=== PATIENT | female | born 1995 | race American Indian/Alaskan Native ===

== ENCOUNTER 2025-02-19 09:51 | Inpatient (IN) | payer BC, SELFPAY ==
[2025-02-19] VITALS (13 sets, daily range): BP systolic 162–216; BP diastolic 105–159; PULSE 92–127; RESP 10–20; TEMP 36.2–37.3; O2SAT 95–99; BMI 55.7
--- NOTE | 2025-02-19 | XR_ITS ---
Examination: MRI of brain without intravenous contrast. MRI brain with intravenous contrast. Date and time of exam:February 19, 2025 1330 hours INDICATIONS: Onset right-sided facial droop with numbness beginning 8:00 PM last night Technique: Multiple axial and sagittal images of the brain to been obtained. Siemens high-resolution 1.52 Elizabeth short bore scanner utilized. Sagittal sections, T1 weighted images, TR 500, TE 14, are performed. Axial sections proton-density and T2-weighted images have been obtained. Inversion recovery axial images, TR 9260, TE 111, TR 2500. Diffusion weighted images, axial sections, TR 4800, TE 128, B value 1000. Axial sections, ADC map, TR 4800, TE 128. Axial and coronal images were also obtained post 20 cc gadolinium administered intravenously. Findings:: Enlargement of the sella turcica is not present. The optic chiasm and infundibular stalk are not remarkable. There is no localized enlargement of the medulla or ian. Fourth ventricle and cerebellar tonsils appear normal in position. No subacute area of hemorrhage density is seen. Fourth ventricle is midline. Mass in the cerebellopontine angle region is not evident. 7th and 8th nerve complexes exhibit symmetry Globes are symmetrical Orbital musculature including medial lateral rectus muscles do not exhibit abnormality Increased white matter signal is not seen Effacement of the cortical sulcal markings is not identified. Mass effect upon the ventricular system is not identified. Diffusion-weighted images demonstrate no foci restricted diffusion Contrast images demonstrate no abnormal enhancement Impression: Negative for acute hemorrhage mass effect or midline shift No acute infarct No MR findings diagnostic for demyelinating disease
--- NOTE | 2025-02-19 10:18 | EKG_ITS ---
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
--- NOTE | 2025-02-19 10:18 | XR_ITS ---
Examination: CT brain head without contrast. 2-D sagittal coronal reconstructions Date and time of exam:February 19, 2025 at 1036 hours INDICATIONS: Onset facial numbness this morning CTDI: vol (mGy):67.2 DLP: (mGycm):1243 Technique: Multiple CT axial sections of the brain have been obtained, 5 mm slice thickness. Contrast has not been administered. 2-D sagittal, coronal reconstructions have been obtained Low dose protocols were performed. One or more of the following dose reduction techniques were used; automated exposure control, adjustment of the mA and/or KV according to patient size, use of iterative reconstruction technique. Findings: No significant ventricular enlargement. Intra-axial or extra-axial hemorrhage density is not seen. No mass effect or midline shift Basal cisterns are not remarkable. Fourth ventricle is midline. Cranial vault intact. Impression: Negative for acute hemorrhage, mass effect or midline shift As clinically warranted, brain MRI follow-up would best assess for demyelinating disease
--- NOTE | 2025-02-19 10:18 | PD.EDRME ---
Rapid Medical Screening Exam RME Arrival date/time: 02/19/25 09:51 29-year-old female with no known medical history presents to the emergency room with a chief complaint of left-sided facial numbness and facial droop that began yesterday around 6 PM. Patient states she was sent over by her primary care provider for hypertension emergency. I have greeted and performed a focused initial assessment of this patient. A comprehensive ED assessment and evaluation of the patient, analysis of all test results, and completion of the medical decision making process will be conducted by additional ED providers. Chief Complaint: General Adult/Misc Complain Vital signs reviewed by provider: Yes
[2025-02-19 11:17] LABS: Basophils # (Auto) 0.1 Thou/mm3 (0.0-0.2); Basophils % (Auto) 0 % (0-2.5); Eosinophils # (Auto) 0.1 Thou/mm3 (0.0-0.5); Eosinophils % (Auto) 1 % (0-10); Hemoglobin 14.2 g/dL (12.0-16.0); Immature Granulocytes % (Auto) 0 % (0-0); Immature Granulocytes Auto 0.05 Thou/mm3 (0.00-0.00); Lymphocytes # (Auto) 2.2 Thou/mm3 (1.0-4.8); Lymphocytes % (Auto) 16 % (10-50); Mean Corpuscular HGB Conc 32.3 g/dl (31.0-37.0); Mean Corpuscular Hemoglobin 25.3 pg (25.0-35.0); Mean Corpuscular Volume 78 fL (80-100); Monocytes # (Auto) 0.5 Thou/mm3 (0.0-0.8); Monocytes % (Auto) 4 % (0-12); Neutrophils # (Auto) 11.1 Thou/mm3 (1.8-7.7); Neutrophils % (Auto) 79 % (37-80); Nucleated Red Blood Cell % 0 /100 WBC (0); Platelet Count 337 Thou/mm3 (140-440); RDW Standard Deviation 38.1 fL (36.4-46.3); Red Blood Count 5.61 Miln/mm3 (4.00-5.20)
[2025-02-19 11:25] LABS: INR 1.1 (0.9-1.3); Prothrombin Time 11.8 Seconds (9.0-12.2)
--- NOTE | 2025-02-19 11:30 | EDNOTE_ITS ---
<Statement entered by Magalie Mike MD - 02/19/25 17:45> As co-signing physician, I was present and available for consult prn. I concur with the plan and care as documented by the midlevel provider. ED General RME/HPI General Chief complaint: General Adult/Misc Complain Stated complaint: SENT BY PCP FOR HTN Time Seen by Provider: 02/19/25 11:12 Arrival date/time: 02/19/25 09:51 CC: Hypertensive emergency, right-sided facial droop HPI hypertension emergency is with the primary care provider sent her over for, the patient also stated she has right-sided facial droop with numbness onset approximately 8 PM yesterday approximately 16 hours ago. Patient is morbidly obese awake alert oriented nontoxic-appearing not in any acute distress. RME / HPI RME / HPI narrative: 02/19/25 09:51 29-year-old female with no known medical history presents to the emergency room with a chief complaint of left-sided facial numbness and facial droop that began yesterday around 6 PM. Patient states she was sent over by her primary care provider for hypertension emergency. I have greeted and performed a focused initial assessment of this patient. A comprehensive ED assessment and evaluation of the patient, analysis of all test results, and completion of the medical decision making process will be conducted by additional ED providers. Related Data Previous Rx's ?Medication ?Instructions ?Recorded acetaminophen 650 mg 650 mg PO Q8H PRN fever or p ain 05/09/19 tablet,extended release #30 tabs ibuprofen 600 mg tablet 600 mg PO Q8H PRN fever or p ain 05/09/19 #30 tabs Allergies Allergy/AdvReac Type Severity Reaction Status Date / Time No Known Allergies Allergy Verified 02/19/25 09:52 Review of Systems Review of Systems Narrative Review of Systems: GEN: No fever, no chills, no weight loss EYES: No discharge, no visual changes, no pain HEENT: No ear pain, no congestion, no sore throat PULM: No shortness of breath, no cough, no congestion CV: No chest pain, no dyspnea on exertion, no palpitations GI: No nausea, no vomiting, no diarrhea, no pain, no constipation : No frequency, no urgency, no dysuria MUSC/SKEL: No joint pain, no back pain SKIN: No rash PSYCH: No hallucinations, no depression HEME/LYMPH: No easy bleeding or bruising tendencies NEURO: No weakness, no headache, right-sided facial droop Past Medical History Past Medical History CARDIAC: Positive Cardiac Disorders and Hypertension; Negative Congestive Heart Failure RESPIRATORY: Negative Chronic Obstructive Pulmonary Disease (COPD) GENITOURINARY: Negative Renal Disease ENDOCRINE: Negative Diabetes Mellitus Type 1 or Diabetes Mellitus Type 2 Social History SMOKING STATUS: Never smoker ED Exam Narrative Physical exam: [General: Morbidly obese not in any acute distress Head normocephalic HEENT: Eyes pupils are PERRLA EOMs are intact no nystagmus, mouth pink moist membranes uvula is midline swallow symmetrical phonation is normal. All other subsystems of ATTR within acceptable limits Neck is supple nontender Chest equal chest rise nontender to palpation Respiratory: Clear to auscultation no wheezes crackles or rubs CV: Rate rhythm is regular no murmurs rubs or clicks Abdomen is grossly distended secondary to body habitus soft nontender no masses positive bowel sounds all 4 quadrants Back: No CVA tenderness no spinous process tenderness from cervical spine thoracic and lumbar spine Skin: Intact no petechiae rash induration ulceration or crepitus Extremities: Moving all extremity against resistance cap refill less than 2 seconds neurosensory intact Neuro: Awake alert oriented x3 right-sided facial droop, no tongue deviation. No ptosis. No pronator drift, no proprioception issues Course Quality Measures none Orders Category Date Time Status EKG (ED ONLY) *Do not use* NOW Care 02/19/25 10:18 Completed MRI Screening NOW Care 02/19/25 11:29 Active Saline [Insert IV] NOW Care 02/19/25 11:[address] head/brain wo con Stat Exams 02/19/25 10:18 Completed EKG (ED Only) Stat Exams 02/19/25 10:18 Draft MR head/brain wo/w con Stat Exams 02/19/25 Completed B-Type Natriuretic Peptide Stat Lab 02/19/25 10:51 Completed CBC Stat Lab 02/19/25 10:51 Completed Comprehensive Metabolic Panel Stat Lab 02/19/25 10:51 Completed Drug Screen,Urine Stat Lab 02/19/25 12:00 Completed HCG Qualitative,Urine Stat Lab 02/19/25 12:00 Completed Magnesium Stat Lab 02/19/25 10:51 Completed Partial Thromboplastin Time Stat Lab 02/19/25 10:51 Completed Prothrombin Time with INR Stat Lab 02/19/25 10:51 Completed Troponin I Stat Lab 02/19/25 10:51 Completed Urinalysis Stat Lab 02/19/25 10:18 Ordered Urinalysis, C/S if Indicated Stat Lab 02/19/25 12:00 Completed Metoprolol Tartrate [Lopressor] Med 02/19/25 12:37 Discontinued 50 mg PO X1 ONE Ondansetron Inj [Zofran Inj] Med 02/19/25 14:52 Discontinued 4 mg IV X1 ONE hydrALAZINE INJ [Apresoline Inj] Med 02/19/25 14:08 Discontinued 10 mg IV X1 ONE hydrALAZINE INJ [Apresoline Inj] Med 02/19/25 11:19 Discontinued 20 mg IV X1 ONE Vital Signs Vital signs: Vital Signs Temperature 99.2 F 02/19/25 10:32 Pulse Rate 105 H 02/19/25 10:32 Respiratory Rate 20 02/19/25 10:32 Blood Pressure 210/147 H 02/19/25 10:32 Pulse Oximetry (%) 96 02/19/25 10:32 Oxygen Delivery Method Room Air 02/19/25 10:32 [facility] Patient data External records reviewed:: [facility] previous records Clinical information provided by:: patient Social determinants that could affect healthcare access:: none Patient has the following chronic illnesses:: Morbid obesity How is presenting disease/condition affected by chronic disease/condition?: e xacerbated by Evaluation data The following diagnostics were reviewed and interpreted by me:: lab results and radiology exam(s) Lab and/or radiology exams considered but not ordered:: EKG performed at 1030 shows a ventricular rate of 92 MD interval 148 QRS 190 QTc 416 sinus rhythm left ventricular hypertrophy. CBC shows mild leukocytosis of 14,000 H&H of 1214.2 and 44.0 with no thrombocytopenia Coags within acceptable limits CMP shows no significant electrolyte imbalances or renal impairment transaminitis or T. bili elevation Troponin is negative BNP is less than 20. Urine shows 2+ protein UDS is negative. CT of the head is negative for any acute finding. MRI of the head is negative. Interpretation Summary: After multiple doses of hydralazine and metoprolol and was unable to bring the pressures down lower than 190/110. At this time I am concerned for the patient's hypertension emergency I discussed the patient's case with Dr. Campos who agrees to accept the patient for admission. 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 Medications Medications considered but not ordered:: None Medication administrations:: Medication Administration History Discontinued Medications Hydralazine HCl (Hydralazine Inj 20 Mg/Ml Vial) 20 mg IV X1 ONE Stop: 02/19/25 11:20 Last Admin: 02/19/25 11:46 Dose: 20 mg Documented By: LP Hydralazine HCl (Hydralazine Inj 20 Mg/Ml Vial) 10 mg IV X1 ONE Stop: 02/19/25 14:09 Last Admin: 02/19/25 14:16 Dose: 10 mg Documented By: LP Metoprolol Tartrate (Metoprolol Tartrate 25 Mg Tablet) 50 mg PO X1 ONE Stop: 02/19/25 12:38 Last Admin: 02/19/25 12:48 Dose: 50 mg Documented By: LP Ondansetron HCl (Ondansetron Inj 2 Mg/Ml Inj 2 Ml) 4 mg IV X1 ONE; Protocol Stop: 02/19/25 14:53 Last Admin: 02/19/25 14:56 Dose: 4 mg Documented By: TEJINDER None Consultations Consultation(s) initiated? (list below): No Diagnosis Differential Diagnosis ED Complaint MDM: CVA TIA Kelly's palsy hypertensive emergency Most likely diagnosis given after review of the tests above:: Hypertension emergency Kelly's palsy Admission Indicated Admission indicated?: indicated Explain why admission is indicated or not indicated:: Requires further medical management Admission Request Was there a request for admission?: No Disposition Plan Disposition Plan: Discharge Discharge Attestation Discharge Attestation: The patient and all family members were given an opportunity to ask questions and understood the discharge instructions. Discharge instructions specifically effects, indications for sooner follow up or return to the emergency department, and the expected course of current diagnosis. Patient condition: Stable Medical Decision Making Differential Diagnosis Differential Diagnosis: CVA TIA Kelly's palsy hypertensive emergency Lab Data 02/19/25 10:51 02/19/25 10:51 Labs: Lab Results 02/19/25 02/19/25 Range/Units 10:51 12:00 WBC 14.0 H (3.6-11.0) Thou/mm3 RBC 5.61 H (4.00-5.20) Miln/mm3 Hgb 14.2 (12.0-16.0) g/dL Hct 44.0 (36.0-46.0) % MCV 78 L (80-100) fL MCH 25.3 (25.0-35.0) pg MCHC 32.3 (31.0-37.0) g/dl RDW Std Deviation 38.1 (36.4-46.3) fL Plt Count 337 (140-440) Thou/mm3 Neut % (Auto) 79 (37-80) % Lymph % (Auto) 16 (10-50) % [place] % (Auto) 4 (0-12) % Eos % (Auto) 1 (0-10) % Baso % (Auto) 0 (0-2.5) % Neut # (Auto) 11.1 H (1.8-7.7) Thou/mm3 Lymph # (Auto) 2.2 (1.0-4.8) Thou/mm3 [place] # (Auto) 0.5 (0.0-0.8) Thou/mm3 Eos # (Auto) 0.1 (0.0-0.5) Thou/mm3 Baso # (Auto) 0.1 (0.0-0.2) Thou/mm3 Immature Gran # (Auto) 0.05 H (0.00-0.00) Thou/mm3 Absolute Nucleated RBC 0.00 (0.00-0.00) Thou/mm3 Immature Gran % 0 (0-0) % Nucleated RBC % 0 (0) /100 WBC PT 11.8 (9.0-12.2) Seconds INR 1.1 (0.9-1.3) APTT 30.0 (22.0-36.0) Seconds Sodium 139 (136-145) mMol/L Potassium 3.8 (3.4-5.1) mMol/L Chloride 105 (98-107) mMol/L Carbon Dioxide 25.1 (20.0-31.0) mMol/L Anion Gap 9 (7-16) BUN 9 (9-23) mg/dL Creatinine 0.7 (0.6-1.3) mg/dL Estim Creat Clear Calc 161.3 (>60) mL/min eGFR > 60 (60 - ) See Note BUN/Creatinine Ratio 13 (12-20) Ratio Glucose 96 (74-106) mg/dL Calculated Osmolality 276 (275-295) Calcium 9.1 (8.3-10.6) mg/dL Corrected Calcium 9.1 (8.5-10.1) mg/dL Magnesium 1.9 (1.6-2.6) mg/dL Total Bilirubin 0.5 (0.3-1.2) mg/dL AST 22 (0-34) U/L ALT 25 (10-49) U/L Alkaline Phosphatase 104 (46-116) U/L Troponin I < 0.020 (0.0-0.045) ng/mL B-Natriuretic Peptide < 20 (0-100) pg/mL Total Protein 8.3 H (5.7-8.2) gm/dL Albumin 4.5 (3.5-5.0) gm/dL Globulin 3.8 H (2.3-3.5) gm/dL Albumin/Globulin Ratio 1.2 (1.2-2.2) Ur Collection Type Clean Catch Urine Color Lt-Yellow (Lt Yel-Yel) Urine Clarity Clear (Clear/Hazy) Urine pH 6.5 (5.0-7.0) Ur Specific [place] 1.022 (1.001-1.035) Urine Protein 2+ A (Neg - Trace) Urine Glucose (UA) Negative (Negative) Urine Ketones Negative (Negative) Urine Blood Trace (Negative) Urine Nitrite Negative (Negative) Urine Bilirubin Negative (Negative) Urine Urobilinogen (Auto) Negative (0.0-1.0) mg/dL Ur Leukocyte Esterase Negative (Negative) Urine RBC 8 H (0-3) /hpf Urine WBC 3 (0-5) /hpf Ur Squamous Epith Cells 4 (0-5) /hpf Urine Bacteria None (None) Ur Culture Indicated? Not Indicated Urine HCG, Qual Negative Urine Opiates Screen Negative (Negative) Urine Fentanyl Screen Negative (Negative) Ur Barbiturates Screen Negative (Negative) U Amphetamin/Meth Scrn Negative (Negative) U Benzodiazepines Scrn Negative (Negative) U Cocaine Metab Screen Negative (Negative) U Marijuana (THC) Screen Negative (Negative) Discharge Plan Plan Patient Disposition: HOME (Self Care) Patient condition on transfer: Stable Prescriptions/Referrals Prescriptions/Med Rec: No Action acetaminophen 650 mg tablet extended release 650 mg PO Q8H PRN (Reason: fever or pain) Qty: 30 0RF Rx Instructions: swallow whole; do not crush, chew, break, dissolve, cut, or open ibuprofen 600 mg tablet 600 mg PO Q8H PRN (Reason: fever or pain) Qty: 30 0RF Rx Instructions: prn pain / fever Referrals: Ji Dash MD [Primary Care Provider] - In 1 week Problem List Clinical Impression: Hypertensive emergency, Kelly's palsy Patient/Caregiver Discharge Instructions Print Language: Irish Stand Alone Forms: Ro Award Info., Patient Portal Info Letter PA/FORMING YARDAGE CONTROL OPERATOR Supervising Physician PA/FORMING YARDAGE CONTROL OPERATOR Supervising Physician: Albino Ludwig ENP
[2025-02-19 11:32] LABS: B-Type Natriuretic Peptide < 20 pg/mL (0-100)
[2025-02-19 11:34] LABS: Alanine Aminotransferase 25 U/L (10-49); Albumin, Serum 4.5 gm/dL (3.5-5.0); Albumin/Globulin Ratio 1.2 (1.2-2.2); Alkaline Phosphatase 104 U/L (46-116); Anion Gap 9 (7-16); Aspartate Amino Transferase 22 U/L (0-34); BUN/Creatinine Ratio 13 Ratio (12-20); Bilirubin,Total 0.5 mg/dL (0.3-1.2); Blood Urea Nitrogen 9 mg/dL (9-23); Calcium 9.1 mg/dL (8.3-10.6); Calcium (Corrected) 9.1 mg/dL (8.5-10.1); Carbon Dioxide 25.1 mMol/L (20.0-31.0); Chloride 105 mMol/L (98-107); Creatinine (Component) 0.7 mg/dL (0.6-1.3); Estimated Creatinine Clearance 161.3 mL/min (>60); Globulin 3.8 gm/dL (2.3-3.5); Glucose 96 mg/dL (74-106); Magnesium 1.9 mg/dL (1.6-2.6); Osmolality,Calculated 276 (275-295); Potassium 3.8 mMol/L (3.4-5.1); Sodium 139 mMol/L (136-145); Total Protein 8.3 gm/dL (5.7-8.2); Troponin I < 0.020 ng/mL (0.0-0.045); eGFR > 60 See Note
[2025-02-19] MEDS: hydrALAZINE INJ 20 MG/ML VIAL IV (11:46)
[2025-02-19 12:22] LABS: Collection Type, Urine Clean Catch
[2025-02-19] MEDS: METOPROLOL TARTRATE 25 MG TABLET 50 MG PO (12:48)
[2025-02-19 12:50] LABS: Bilirubin,Urine Negative (Negative); Blood,Urine Trace (Negative); Clarity,Urine Clear (Clear/Hazy); Color,Urine Lt-Yellow (Lt Yel-Yel); Culture Indicated,Urine Not Indicated; Glucose, Urine Negative (Negative); Ketones,Urine Negative (Negative); Leukocyte Esterase,Urine Negative (Negative); Nitrite,Urine Negative (Negative); PH,Urine 6.5 (5.0-7.0); Protein,Urine 2+ (Neg - Trace); RBC,Urine 8 /hpf (0-3); Specific Gravity,Urine 1.022 (1.001-1.035); Squamous Epithelial Cell,Urine 4 /hpf (0-5); Urobilinogen,Urine Negative mg/dL (0.0-1.0); WBC,Urine 3 /hpf (0-5)
[2025-02-19 13:00] LABS: HCG Qualitative,Urine Negative
[2025-02-19 13:13] LABS: Amphetamine/Methamp Scrn,U Negative (Negative); Barbiturate Screen,Urine Negative (Negative); Benzodiazepines Screen,Urine Negative (Negative); Benzoylecgonine Screen, Ur Negative (Negative); Fentanyl Screen,Urine Negative (Negative); Opiate Screen,Urine Negative (Negative); THC Screen,Urine Negative (Negative)
[2025-02-19] MEDS: hydrALAZINE INJ 20 MG/ML VIAL 10 MG IV (14:16)
[2025-02-19] MEDS: ONDANSETRON INJ 2 MG/ML INJ 2 ML 4 MG IV (14:56)
[2025-02-19] MEDS: LABETALOL INJ 5 MG/ML VIAL 20 ML 10 MG IVP ×2 (15:34→16:41)
[2025-02-19] MEDS: ACETAMINOPHEN 325 MG TABLET 650 MG PO ×2 (15:34→21:16)
--- NOTE | 2025-02-19 16:43 | PC.NURSE ---
LABETALOL VIAL WAS ON WOW, GOT PUMPED, FELL TO FLOOR AND SHATTERED. CALLED PHARMACY AND WAS INSTRUCTED TO UNDO THAT IT HAD BEEN GIVEN AND PUT THE ORDER IN AGAIN WHICH WAS DONE.
--- NOTE | 2025-02-19 18:10 | ESHP_ITS ---
<Statement entered by Torin Christine MD - 02/21/25 07:57> Senior Resident Attestation: I supervised/discussed management plan with recording studio internship physician Dr. Chaves, and was involved in the care of this patient. I personally saw and examined the patient and discussed the assessment and plan with the entire medicine team, including my attending. I agree with the assessment and plan as documented. Patient's care was discussed with attending physician, Dr. Campos. Torin Christine MD PGY-2. Documentation for date of: 02/19/25 HPI History of Present Illness History of present illness: Ms. George is a 29-year-old female with no significant past medical history presented to the ED sent from urgent care after she was found to have systolic blood pressure above 200s and right sided facial droop. Patient states this has never happened before she was fine last night however she did note do some mild droopiness on the right side of her face and this morning she noticed a significant droop which prompted her to go to the urgent care where she was found to be in hypertensive emergency. Patient states she does have a headache, nausea and vomiting but denies any dizziness blurry vision or syncopal episodes. Patient states she was sick about 2 to 3 weeks ago with some upper respiratory infection with sore throat and runny nose however she did not take any medications and naturally got better. Patient denies any constipation or diarrhea denies any recent travels or sick contacts. Exam Vital Signs Temp Pulse Resp BP Pulse Ox O2 Del Method 98.8 F 100 10 L 170/110 H 97 Room Air 02/19/25 17:56 02/19/25 17:56 02/19/25 17:56 02/19/25 17:56 02/19/25 17:56 02/19/25 17:56 Narrative Exam GENERAL: A&Ox3 . Awake, obese young female, does not appear to be in distress NEURO: no focal neurological deficits noted other than right sided facial droop HEENT: Atraumatic, Normocephalic. mucous membranes moist. Eyes open, symmetrical, & clear HEART: Normal Heart Sounds LUNGS: Clear to auscultation with no wheezing or crackles. ABDOMEN: soft, non-distended, non-tender, bowel sounds heard, no guarding or rebound tenderness SKIN: No Rash or ecchymoses EXTREMITIES: No edema, tenderness, able to move all 4 extremities, pedal pulses palpated Results: Labs 02/20/25 05:10 02/20/25 05:10 Labs: Short CBC 02/19/25 Range/Units 10:51 WBC 14.0 H (3.6-11.0) Thou/mm3 Hgb 14.2 (12.0-16.0) g/dL Hct 44.0 (36.0-46.0) % Plt Count 337 (140-440) Thou/mm3 BMP 02/19/25 10:51 Sodium 139 Potassium 3.8 Chloride 105 Carbon Dioxide 25.1 BUN 9 Creatinine 0.7 Glucose 96 Calcium 9.1 Cardiac Enzymes 02/19/25 Range/Units 10:51 Troponin I < 0.020 (0.0-0.045) ng/mL Liver Function 02/19/25 Range/Units 10:51 Total Bilirubin 0.5 (0.3-1.2) mg/dL AST 22 (0-34) U/L ALT 25 (10-49) U/L Alkaline Phosphatase 104 (46-116) U/L Albumin 4.5 (3.5-5.0) gm/dL Urine 02/19/25 Range/Units 12:00 Urine Color Lt-Yellow (Lt Yel-Yel) Urine Clarity Clear (Clear/Hazy) Urine pH 6.5 (5.0-7.0) Ur Specific [place] 1.022 (1.001-1.035) Urine Protein 2+ A (Neg - Trace) Urine Glucose (UA) Negative (Negative) Quality Measures Quality Measures none Medications Home Medications and Allergies Allergies Allergy/AdvReac Type Severity Reaction Status Date / Time No Known Allergies Allergy Verified 02/19/25 09:52 Visit Medications Acetaminophen (Acetaminophen Supp 650 Mg Supp) 650 mg OK Q6H PRN PRN Reason: pain and fever Stop: 03/21/25 16:41 Aspirin (Aspirin Ec 81 Mg Tabec) 81 mg PO DAILY KEYSHA Stop: 03/21/25 16:59 Heparin Sodium (Porcine) (Heparin Sod Inj 5000 Unit/Ml Vial) 5,000 unit SC Q8HR KEYSHA Stop: 03/05/25 21:59 Labetalol HCl (Labetalol Inj 5 Mg/Ml Vial 20 Ml) 20 mg IVP Q6H PRN PRN Reason: SBP >180 DBP > 110 Stop: 03/21/25 19:59 Ondansetron HCl (Ondansetron Inj 2 Mg/Ml Inj 2 Ml) 4 mg IV Q6H PRN; Protocol PRN Reason: NAUSEA OR VOMITING Stop: 03/21/25 16:41 Discontinued Medications Acetaminophen (Acetaminophen 325 Mg Tablet) 650 mg PO X1 ONE Stop: 02/19/25 15:27 Last Admin: 02/19/25 15:34 Dose: 650 mg Hydralazine HCl (Hydralazine Inj 20 Mg/Ml Vial) 20 mg IV X1 ONE Stop: 02/19/25 11:20 Last Admin: 02/19/25 11:46 Dose: 20 mg Hydralazine HCl (Hydralazine Inj 20 Mg/Ml Vial) 10 mg IV X1 ONE Stop: 02/19/25 14:09 Last Admin: 02/19/25 14:16 Dose: 10 mg Labetalol HCl (Labetalol Inj 5 Mg/Ml Vial 20 Ml) 10 mg IVP X1 ONE Stop: 02/19/25 15:26 Last Admin: 02/19/25 15:34 Dose: 10 mg Labetalol HCl (Labetalol Inj 5 Mg/Ml Vial 20 Ml) 10 mg IVP X1 ONE Stop: 02/19/25 15:58 Last Admin: 02/19/25 16:19 Dose: Not Given Labetalol HCl (Labetalol Inj 5 Mg/Ml Vial 20 Ml) 10 mg IVP X1 ONE Stop: 02/19/25 16:21 Last Admin: 02/19/25 16:41 Dose: 10 mg Metoprolol Tartrate (Metoprolol Tartrate 25 Mg Tablet) 50 mg PO X1 ONE Stop: 02/19/25 12:38 Last Admin: 02/19/25 12:48 Dose: 50 mg Ondansetron HCl (Ondansetron Inj 2 Mg/Ml Inj 2 Ml) 4 mg IV X1 ONE; Protocol Stop: 02/19/25 14:53 Last Admin: 02/19/25 14:56 Dose: 4 mg Assessment & Plan Plan Ms. George is a 29-year-old female with no significant past medical history presented to the ED sent from urgent care after she was found to have systolic blood pressure above 200s and right sided facial droop. Pt is admitted for neuro recommendations and management of hypertension. #Hypertensive emergency - Patient went to urgent care found to have systolic blood pressure above 200 was sent to the ED at [facility]. - In the ED patient had a blood pressure of 210/147 -Patient was given hydralazine x 2, labetalol x 2 Plan: -Will continue to monitor on telemetry -Decrease BP 25% in the first 24 hours -Labetalol is ordered for as needed SBP above 180 #Kelly's palsy - Patient has a right side facial droop which began on the night of 02/18 without any other deficits, no motor weakness in the extremities or slurred speech - Brain MRI is negative for acute hemorrhage mass effect or midline shift and no acute infarct noted - CT of head is also negative for acute hemorrhage mass effect or midline shift Plan: Neurology is consulted, appreciate recommendations - Per neurology recs aspirin 81 mg is started #Morbid Obesity -Pt's BMI is 55.8 -Follow up outpatient for weightloss options Health Maintenance Disposition: Telemetry for IV labetalol pushes for Hypertensive emergency DVT Prophylaxis: Heparin 5000 units SC Q8 hrs GI Prophylaxis: not indicated Diet: regular diet Lines: Peripheral lines Code status: Full Assessment and plan discussed with my senior resident Dr. Saxena & attending physician Dr. Beth Chaves (PGY-1)- Internal medicine resident Attending Provider Attestation/Addendum I attest that I was physically present for the evaluation, physical examination, lab and imaging review of the patient with the residents. I discussed the case with the residents and agree with the findings and plans of care as documented above. Patient is a 29 years old female without known past medical history presented to the ED from urgent care when she was found to have systolic blood pressure above 200s and right facial droop. She also has headache mostly occipital, nausea and vomiting. But denies any dizziness, vision changes or loss of consciousness. In the ED, she was found to have blood pressure up to 250 systolic and 160s diastolic. She was also tachycardic. Lab results show WBC of 14.0. Chemistry panel was nonconcerning. She underwent CT head and brain MRI, which were negative for acute changes. EKG shows sinus rhythm without ST changes. Patient received 30 mg of IV hydralazine, metoprolol 50 p.o., Zofran, labetalol 20 following which her blood pressure started improving. We will admit the patient for hypertensive urgency/emergency. Will start her on as needed labetalol with a goal blood pressure of 180/110(approximate decrease of 25%). Patient has right facial weakness on exam, likely Kelly's palsy. Discussed with neurology, plans to start her on medication once she is able to evaluate. Appreciate recommendations. Sg Campos MD
[2025-02-19] MEDS: ASPIRIN EC 81 MG TABEC PO (18:52)
--- NOTE | 2025-02-19 19:45 | PC.NURSE ---
Report given to CHARITO Padillasewer and cutter finger buff material
[2025-02-19] MEDS: HEPARIN SOD INJ 5000 UNIT/ML VIAL SC (21:16)
--- NOTE | 2025-02-19 23:03 | PD.VCONSULT1 ---
Telemedicine visit statement This visit was conducted with the use of interactive audio and video telecommunications system that permits real time communication between the patient and the provider. Patient's verbal consent for virtual visit was obtained on 02/19/25 at 2303. Meds Home Medications and Allergies Allergies Allergy/AdvReac Type Severity Reaction Status Date / Time No Known Allergies Allergy Verified 02/19/25 09:52 Virtual exam Vital Signs Temp Pulse Resp BP Pulse Ox O2 Del Method 97.2 F 92 19 165/105 H 96 Room Air 02/19/25 20:00 02/19/25 20:00 02/19/25 20:00 02/19/25 20:00 02/19/25 20:00 02/19/25 20:00 Results Labs 02/19/25 10:51 02/19/25 10:51 Labs: Short CBC 02/19/25 Range/Units 10:51 WBC 14.0 H (3.6-11.0) Thou/mm3 Hgb 14.2 (12.0-16.0) g/dL Hct 44.0 (36.0-46.0) % Plt Count 337 (140-440) Thou/mm3 BMP 02/19/25 10:51 Sodium 139 Potassium 3.8 Chloride 105 Carbon Dioxide 25.1 BUN 9 Creatinine 0.7 Glucose 96 Calcium 9.1 Cardiac Enzymes 02/19/25 Range/Units 10:51 Troponin I < 0.020 (0.0-0.045) ng/mL Liver Function 02/19/25 Range/Units 10:51 Total Bilirubin 0.5 (0.3-1.2) mg/dL AST 22 (0-34) U/L ALT 25 (10-49) U/L Alkaline Phosphatase 104 (46-116) U/L Albumin 4.5 (3.5-5.0) gm/dL Urine 02/19/25 Range/Units 12:00 Urine Color Lt-Yellow (Lt Yel-Yel) Urine Clarity Clear (Clear/Hazy) Urine pH 6.5 (5.0-7.0) Ur Specific [place] 1.022 (1.001-1.035) Urine Protein 2+ A (Neg - Trace) Urine Glucose (UA) Negative (Negative)
--- NOTE | 2025-02-19 23:06 | PD.NEUROCONS ---
History of Present Illness Data of Consult Requesting Physician: Sg Campos MD Primary Care Provider: Ji Dash MD Consult Narrative History of present illness: Ms. George is a 29-year-old female with labile hypertension presented to the ER sent from urgent care after she was found to have systolic blood pressure above 200s and right sided facial droop. Patient did notice some mild droopiness on the right side of her face which became significant this morning which prompted her to go to the urgent care where she was found to be in hypertensive emergency. Patient complains of headache, nausea and vomiting but denies any dizziness blurry vision or syncopal episodes. Patient states she was sick about 2 to 3 weeks ago with some upper respiratory infection with sore throat and runny nose. However she did not take any medications and naturally got better. Patient denies any problems with the taste, swallowing, hearing loss ringing in the ears or dizziness/vertigo. She never had similar symptoms in the past. Neurology was consulted to evaluate for Kelly's palsy. cc:: cc: Sg Campos MD Review of Systems Review of Systems Systems Reviewed: All systems reviewed, normal except as documented Past Medical History Past Medical History CARDIAC: Positive Cardiac Disorders and Hypertension; Negative Congestive Heart Failure RESPIRATORY: Negative Chronic Obstructive Pulmonary Disease (COPD) GENITOURINARY: Negative Renal Disease ENDOCRINE: Negative Diabetes Mellitus Type 1 or Diabetes Mellitus Type 2 Social History SMOKING STATUS: Never smoker Meds Home Medications and Allergies Allergies Allergy/AdvReac Type Severity Reaction Status Date / Time No Known Allergies Allergy Verified 02/19/25 09:52 Exam - Neurology Vital Signs Temp Pulse Resp BP Pulse Ox O2 Del Method 97.2 F 92 19 165/105 H 96 Room Air 02/19/25 20:00 02/19/25 20:00 02/19/25 20:00 02/19/25 20:00 02/19/25 20:00 02/19/25 20:00 Narrative Exam GENERAL APPEARANCE: morbidly obese built well-developed female in no acute distress. HEENT: Normocephalic, atraumatic, extraocular movements intact. Pupils: Equal reacting to light and accommodation NECK: Supple, no JVD or bruits. CARDIOVASULAR: Heart: S1, S2 heard, regular without S3-S4 or murmur no rubs or gallops. LUNGS/CHEST: Clear to auscultation bilaterally. No rails, rhonchi, or wheezing. Normal inspection. ABDOMEN: Soft, nontender, with normal bowel sounds. No pulsatile masses. No rebound, rigidity, or guarding. Normal inspection and palpation. EXTREMITIES: Normal inspection and palpation. No edema, clubbing or cyanosis. SKIN: Warm and dry without rashes. Normal inspection. MUSCULOSKELETAL: No cervical, thoracic, lumbar or midline bony tenderness. Normal inspection. NEURO: Alert, awake and oriented x3. Cranial nerves: II through XII grossly intact with exception of facial weakness of lower motor neuron type. speech and language: Normal with no dysarthria or dysphasia. Motor system: Tone and bulk: Normal: Strength: 5 out of 5 in all 4 extremities; No pronator drift noted. Deep tendon reflexes: 2+ bilaterally symmetrical. Plantar reflex: Downgoing bilaterally. Sensory system: Intact to all modalities of sensation bilaterally. Coordination: Intact to [id number] and [id number] test bilaterally. No ataxia, no dysmetria, or dysdiadochokinesia noted. No intention tremors noted. Gait: Not tested. No signs of meningeal irritation noted. PSYCHIATRIC: Normal mood and affect. Results Labs 02/20/25 05:10 02/20/25 05:10 Labs: Short CBC 02/19/25 Range/Units 10:51 WBC 14.0 H (3.6-11.0) Thou/mm3 Hgb 14.2 (12.0-16.0) g/dL Hct 44.0 (36.0-46.0) % Plt Count 337 (140-440) Thou/mm3 BMP 02/19/25 10:51 Sodium 139 Potassium 3.8 Chloride 105 Carbon Dioxide 25.1 BUN 9 Creatinine 0.7 Glucose 96 Calcium 9.1 Cardiac Enzymes 02/19/25 Range/Units 10:51 Troponin I < 0.020 (0.0-0.045) ng/mL Liver Function 02/19/25 Range/Units 10:51 Total Bilirubin 0.5 (0.3-1.2) mg/dL AST 22 (0-34) U/L ALT 25 (10-49) U/L Alkaline Phosphatase 104 (46-116) U/L Albumin 4.5 (3.5-5.0) gm/dL Urine 04/14/25 Range/Units 12:00 Urine Color Lt-Yellow (Lt Yel-Yel) Urine Clarity Clear (Clear/Hazy) Urine pH 6.5 (5.0-7.0) Ur Specific [place] 1.022 (1.001-1.035) Urine Protein 2+ A (Neg - Trace) Urine Glucose (UA) Negative (Negative) Assessment & Plan Assessment and plan (1) Kelly's palsy: Status: Acute Assessment and plan: Recommend to start acyclovir 800 mg tid or 400 mg 5 times a day and prednisone 60 mg a day for 5 days followed by weaning by 10 mg daily for another 5 days. Facial strengthening exercises with massage and TENS unit Physical therapy referral as an outpatient (2) Hypertensive emergency: Status: Acute Assessment and plan: Continue with aggressive blood pressure control Reassurance given to the patient regarding the negative MRI brain.
[2025-02-20] VITALS (8 sets, daily range): BP systolic 141–175; BP diastolic 96–115; PULSE 75–100; RESP 14–26; TEMP 36.1–36.6; O2SAT 96–98; BMI 55.2
[2025-02-20] MEDS: HEPARIN SOD INJ 5000 UNIT/ML VIAL SC ×3 (05:39→22:04)
[2025-02-20 05:53] LABS: Basophils % (Auto) 0 % (0-2.5); Eosinophils # (Auto) 0.1 Thou/mm3 (0.0-0.5); Eosinophils % (Auto) 1 % (0-10); Hematocrit 41.5 % (36.0-46.0); Hemoglobin 13.6 g/dL (12.0-16.0); Immature Granulocytes % (Auto) 0 % (0-0); Immature Granulocytes Auto 0.04 Thou/mm3 (0.00-0.00); Lymphocytes # (Auto) 2.7 Thou/mm3 (1.0-4.8); Lymphocytes % (Auto) 21 % (10-50); Mean Corpuscular HGB Conc 32.8 g/dl (31.0-37.0); Mean Corpuscular Hemoglobin 25.7 pg (25.0-35.0); Mean Corpuscular Volume 78 fL (80-100); Monocytes # (Auto) 0.7 Thou/mm3 (0.0-0.8); Monocytes % (Auto) 5 % (0-12); Neutrophils # (Auto) 9.7 Thou/mm3 (1.8-7.7); Neutrophils % (Auto) 73 % (37-80); Nucleated Red Blood Cell % 0 /100 WBC (0); Platelet Count 379 Thou/mm3 (140-440); RDW Standard Deviation 39.5 fL (36.4-46.3); White Blood Count 13.2 Thou/mm3 (3.6-11.0)
[2025-02-20 06:16] LABS: Alanine Aminotransferase 20 U/L (10-49); Albumin, Serum 4.3 gm/dL (3.5-5.0); Albumin/Globulin Ratio 1.2 (1.2-2.2); Alkaline Phosphatase 93 U/L (46-116); Anion Gap 10 (7-16); Aspartate Amino Transferase 18 U/L (0-34); BUN/Creatinine Ratio 13 Ratio (12-20); Bilirubin,Total 0.8 mg/dL (0.3-1.2); Blood Urea Nitrogen 10 mg/dL (9-23); Calcium 9.2 mg/dL (8.3-10.6); Calcium (Corrected) 9.2 mg/dL (8.5-10.1); Carbon Dioxide 25.6 mMol/L (20.0-31.0); Chloride 103 mMol/L (98-107); Creatinine (Component) 0.8 mg/dL (0.6-1.3); Estimated Creatinine Clearance 141.1 mL/min (>60); Globulin 3.6 gm/dL (2.3-3.5); Glucose 96 mg/dL (74-106); Osmolality,Calculated 276 (275-295); Phosphorous 3.2 mg/dL (2.4-5.1); Potassium 3.7 mMol/L (3.4-5.1); Sodium 139 mMol/L (136-145); Total Protein 7.9 gm/dL (5.7-8.2); eGFR > 60 See Note
[2025-02-20] MEDS: ASPIRIN EC 81 MG TABEC PO (08:46)
[2025-02-20] MEDS: LABETALOL INJ 5 MG/ML VIAL 20 ML 10 MG IVP (09:25)
--- NOTE | 2025-02-20 11:37 | ESPR_ITS ---
Documentation for date of: 02/20/25 Subjective Subjective Interval history: Not overnight acute events This morning at the bedside, patient is AOx4, saturating well on room air, responding questions properly, tolerating p.o. blood pressure continued to be on the high side and this morning received IV labetalol push. She endorsed that she is feeling well and he stated has a mild headache 5/10 nonpulsating that is responding to Tylenol. Exam Vital Signs Temp Pulse Resp BP Pulse Ox O2 Del Method 97.5 F 94 14 175/107 H 96 Room Air 02/20/25 08:00 02/20/25 09:02/20/25 08:00 02/20/25 09:02/20/25 08:00 02/20/25 08:00 Narrative Exam General: No acute distress, obese, saturating well on room air HEENT: NC/AT, PERRL, EOMI, Good conjugate gaze, moist mucous membranes, right facial drooping Neck: Supple, No masses, No adenopathy, carotid pulse 2+ bilaterally without bruits, No JVD, normal range of motion. Chest: Symmetrical, atraumatic, and with equal expansion , Nontender on palpation no deformity and no crepitus. CVS: S1 and S2 present, Regular rate and rhythm, No murmurs, rubs or gallops perceived during auscultation. Lungs: Normal respiratory effort, CTAB, no wheezing, rhonchi or rales perceived during auscultation, No intercostal or subcostal retraction. Abdomen : Soft, increased abdominal girth no tenderness to palpation, no guarding ,no rebound, +BS, no organomegaly. Extremities: No edema, warm well perfused, normal tone and ROM, strength and sensation intact, cap refill less than 2, +2 dp equal bilaterally, able to move all 4 extremities spontaneously. Skin: Intact, no rashes, no lesions, no erythema or jaundice noted Neuro: AOx4, right facial weakness and right facial droop, reflex symmetric and sensation normal, GCS 15 Psych: Appropriate mood and affect. Objective Labs 02/22/25 05:30 02/21/25 06:47 Labs: Laboratory Results - last 24 hr 02/19/25 02/20/25 12:00 05:10 WBC 13.2 H RBC 5.30 H Hgb 13.6 Hct 41.5 MCV 78 L MCH 25.7 MCHC 32.8 RDW Std Deviation 39.5 Plt Count 379 D Neut % (Auto) 73 Lymph % (Auto) 21 [place] % (Auto) 5 Eos % (Auto) 1 Baso % (Auto) 0 Neut # (Auto) 9.7 H Lymph # (Auto) 2.7 [place] # (Auto) 0.7 Eos # (Auto) 0.1 Baso # (Auto) 0.0 Immature Gran # (Auto) 0.04 H Absolute Nucleated RBC 0.00 Immature Gran % 0 Nucleated RBC % 0 Sodium 139 Potassium 3.7 Chloride 103 Carbon Dioxide 25.6 Anion Gap 10 BUN 10 Creatinine 0.8 Estim Creat Clear Calc 141.1 eGFR > 60 BUN/Creatinine Ratio 13 Glucose 96 Calculated Osmolality 276 Calcium 9.2 Corrected Calcium 9.2 Phosphorus 3.2 Magnesium 2.0 Total Bilirubin 0.8 AST 18 ALT 20 Alkaline Phosphatase 93 Total Protein 7.9 Albumin 4.3 Globulin 3.6 H Albumin/Globulin Ratio 1.2 Ur Collection Type Clean Catch Urine Color Lt-Yellow Urine Clarity Clear Urine pH 6.5 Ur Specific [place] 1.022 Urine Protein 2+ A Urine Glucose (UA) Negative Urine Ketones Negative Urine Blood Trace Urine Nitrite Negative Urine Bilirubin Negative Urine Urobilinogen (Auto) Negative Ur Leukocyte Esterase Negative Urine RBC 8 H Urine WBC 3 Ur Squamous Epith Cells 4 Urine Bacteria None Ur Culture Indicated? Not Indicated Urine HCG, Qual Negative Urine Opiates Screen Negative Urine Fentanyl Screen Negative Ur Barbiturates Screen Negative U Amphetamin/Meth Scrn Negative U Benzodiazepines Scrn Negative U Cocaine Metab Screen Negative U Marijuana (THC) Screen Negative Quality Measures Quality Measures none Assessment & Plan Assessment Current Active Medications: Generic Name Dose Route Start Last Admin Trade Name Freq PRN Reason Stop Dose Admin Acetaminophen 650 mg 02/19/25 16:42 Acetaminophen Supp 650 Mg Supp CA 03/21/25 16:41 Q6H PRN pain and fever Protocol Acetaminophen 650 mg 02/19/25 20:42 02/19/25 21:16 Acetaminophen 325 Mg Tablet PO 03/21/25 20:41 650 mg Q6HR PRN Administration mild pain or fever Protocol Aspirin 81 mg 02/19/25 17:00 02/20/25 08:46 Aspirin Ec 81 Mg Tabec PO 03/21/25 16:59 81 mg DAILY KEYSHA Administration Heparin Sodium (Porcine) 5,000 unit 02/19/25 22:00 02/20/25 05:39 Heparin Sod Inj 5000 Unit/Ml Vial SC 03/05/25 21:59 5,000 unit Q8HR KEYSHA Administration Labetalol HCl 20 mg 02/19/25 20:00 Labetalol Inj 5 Mg/Ml Vial 20 Ml IVP 03/21/25 19:59 Q6H PRN SBP >180 DBP > 110 Ondansetron HCl 4 mg 02/19/25 16:42 Ondansetron Inj 2 Mg/Ml Inj 2 Ml IV 03/21/25 16:41 Q6H PRN NAUSEA OR VOMITING Protocol Plan #Kelly's palsy Patient had a viral upper respiratory infection 2 weeks before before presentation CT head was negative for hemorrhage, mass or midline shift Brain MRI was negative for acute stroke Plan: ? Continue Aciclovir 800 mg 3 times daily ? Continue prednisone 60 mg daily for 5 days and taper off by 10 mg daily for 5 more days ? Continue facial strengthening exercises with massage and TENS unit ? Physical therapy outpatient upon discharge #Hypertensive emergency Plan: ? Continue blood pressure control by primary team Patient discussed with my attending Dr Declan Main MD PGY-3 Disclaimer: Despite multiple revisions, due to the dictation software being used, the document bellow may not be free of grammatical errors including phonetic/typographic errors. However, this does not deter from our commitment to providing health care in the patient's best interest in mind. Attending Provider Attestation/Addendum I personally have seen and examined the patient at the bedside and I agree with resident's findings, assessment and plan of care. Continue with facial massage, exercises to improve the functioning and aggressive blood pressure management. Continue with acyclovir and prednisone as ordered.
--- NOTE | 2025-02-20 13:07 | PC.SS ---
Mirtha George is a 29 Year old female admitted for Hypertensive Emergency. SS met with patient at bedside to conduct initial assessment, Patient reports she lives at home with her family, Patient reports her surrogate decision maker is her , Mart Rasheed [phone]. Patient does not utilize any source of DME to assist with ambulation, patient is able to complete all ADL's independently. PCP is Ji aDsh. Choice of pharmacy is [facility]. At time of discharge patient will return home. Next of kin, , Mart Rasheed Discharge Plan: Home
[2025-02-20] MEDS: ACETAMINOPHEN 325 MG TABLET 650 MG PO (13:26)
--- NOTE | 2025-02-20 15:00 | PD.RESPRO ---
Documentation for date of: 02/20/25 Subjective Subjective Interval history: No acute overnight events reported. Patient seen and examined at bedside this morning. Vitals this morning. Provide blood pressure 146/98 however within an hour patient systolic blood pressure went up to 178 in the bed Dilaudid x 1 was given. patient continues to have facial nerve palsy on the right side. Patient is complaining of a headache. Patient is notified later today will add oral antihypertensives as she may need it for a long time. As per neurology recommendation patient will be started on acyclovir 800 mg 3 times daily, prednisone 60 mg for 5 days and taper for additional 5 days. Patient is recommended a TENS unit and facial exercises and PT outpatient. Patient denies any chest pain palpitations or dizziness. Patient has no other findings labs are within normal limits. Exam Vital Signs Temp Pulse Resp BP Pulse Ox O2 Del Method 97.8 F 80 15 168/105 H 97 Room Air 02/20/25 12:00 02/20/25 12:00 02/20/25 12:00 02/20/25 12:00 02/20/25 12:00 02/20/25 12:00 Narrative Exam GENERAL: A&Ox3 . Awake, obese young female, does not appear to be in distress NEURO: no focal neurological deficits noted other than right sided facial droop HEENT: Atraumatic, Normocephalic. mucous membranes moist. Eyes open, symmetrical, & clear HEART: Normal Heart Sounds LUNGS: Clear to auscultation with no wheezing or crackles. ABDOMEN: soft, non-distended, non-tender, bowel sounds heard, no guarding or rebound tenderness SKIN: No Rash or ecchymoses EXTREMITIES: No edema, tenderness, able to move all 4 extremities, pedal pulses palpated Objective Labs 02/20/25 05:10 02/20/25 05:10 Labs: Laboratory Results - last 24 hr 02/20/25 05:10 WBC 13.2 H RBC 5.30 H Hgb 13.6 Hct 41.5 MCV 78 L MCH 25.7 MCHC 32.8 RDW Std Deviation 39.5 Plt Count 379 D Neut % (Auto) 73 Lymph % (Auto) 21 [place] % (Auto) 5 Eos % (Auto) 1 Baso % (Auto) 0 Neut # (Auto) 9.7 H Lymph # (Auto) 2.7 [place] # (Auto) 0.7 Eos # (Auto) 0.1 Baso # (Auto) 0.0 Immature Gran # (Auto) 0.04 H Absolute Nucleated RBC 0.00 Immature Gran % 0 Nucleated RBC % 0 Sodium 139 Potassium 3.7 Chloride 103 Carbon Dioxide 25.6 Anion Gap 10 BUN 10 Creatinine 0.8 Estim Creat Clear Calc 141.1 eGFR > 60 BUN/Creatinine Ratio 13 Glucose 96 Calculated Osmolality 276 Calcium 9.2 Corrected Calcium 9.2 Phosphorus 3.2 Magnesium 2.0 Total Bilirubin 0.8 AST 18 ALT 20 Alkaline Phosphatase 93 Total Protein 7.9 Albumin 4.3 Globulin 3.6 H Albumin/Globulin Ratio 1.2 Quality Measures Quality Measures none Assessment & Plan Assessment Current Active Medications: Generic Name Dose Route Start Last Admin Trade Name Freq PRN Reason Stop Dose Admin Acetaminophen 650 mg 02/19/25 16:42 Acetaminophen Supp 650 Mg Supp [place] 03/21/25 16:41 Q6H PRN pain and fever Protocol Acetaminophen 650 mg 02/19/25 20:42 02/20/25 13:26 Acetaminophen 325 Mg Tablet PO 03/21/25 20:41 650 mg Q6HR PRN Administration mild pain or fever Protocol Acyclovir 800 mg 02/20/25 15:00 Acyclovir 800 Mg Tablet PO 02/27/25 14:59 TID KEYSHA Aspirin 81 mg 02/19/25 17:00 02/20/25 08:46 Aspirin Ec 81 Mg Tabec PO 03/21/25 16:59 81 mg DAILY KEYSHA Administration Heparin Sodium (Porcine) 5,000 unit 02/19/25 22:00 02/20/25 13:24 Heparin Sod Inj 5000 Unit/Ml Vial SC 03/05/25 21:59 5,000 unit Q8HR KEYSHA Administration Labetalol HCl 20 mg 02/19/25 20:00 Labetalol Inj 5 Mg/Ml Vial 20 Ml IVP 03/21/25 19:59 Q6H PRN SBP >180 DBP > 110 Lisinopril 20 mg 02/20/25 14:55 Lisinopril 20 Mg Tablet PO 03/22/25 14:54 QDAY KEYSHA Ondansetron HCl 4 mg 02/19/25 16:42 Ondansetron Inj 2 Mg/Ml Inj 2 Ml IV 03/21/25 16:41 Q6H PRN NAUSEA OR VOMITING Protocol Prednisone 60 mg 02/20/25 15:00 Prednisone 20 Mg Tablet PO 02/25/25 14:59 QDAY KEYSHA Plan Ms. George is a 29-year-old female with no significant past medical history presented to the ED sent from urgent care after she was found to have systolic blood pressure above 200s and right sided facial droop. Pt is admitted for neuro recommendations and management of hypertension. #Hypertensive emergency/urgency #Primary hypertension - Patient went to urgent care found to have systolic blood pressure above 200 was sent to the ED at [facility]. - In the ED patient had a blood pressure of 210/147 -Patient was given hydralazine x 2, labetalol x 2 Plan: -Will continue to monitor on telemetry -Decrease BP 25% in the first 24 hours -Labetalol is ordered for as needed SBP above 180 -Pt is started on lisinopril 20mg daily #Kelly's palsy - Patient has a right side facial droop which began on the night of 02/18 without any other deficits, no motor weakness in the extremities or slurred speech - Brain MRI is negative for acute hemorrhage mass effect or midline shift and no acute infarct noted - CT of head is also negative for acute hemorrhage mass effect or midline shift Plan: Neurology is consulted, appreciate recommendations - Per neurology recs aspirin 81 mg is started - Pt is started on acyclovir 800 mg 3 times daily, prednisone 60 mg for 5 days and taper for additional 5 days. -As per neuro recommendation pt is encourage to perform facial exercises and use tens unit. And physical therapy outpatient #Morbid Obesity -Pt's BMI is 55.8 -Follow up outpatient for weightloss options Health Maintenance Disposition: Telemetry for IV labetalol pushes for Hypertensive emergency DVT Prophylaxis: Heparin 5000 units SC Q8 hrs GI Prophylaxis: not indicated Diet: regular diet Lines: Peripheral lines Code status: Full Assessment and plan discussed with my attending physician Dr. Beth Chaves (PGY-1)- Internal medicine resident Attending Provider Attestation/Addendum I attest that I was physically present for the evaluation, physical examination, lab and imaging review of the patient with the residents. I discussed the case with the residents and agree with the findings and plans of care as documented above. At bedside today, patient appears comfortable.? She continues to have headache but he states that it has improved compared to yesterday and is comparable to her baseline.? Blood pressure has improved, 168/105 today.? We will continue with as needed labetalol for SBP more than 180 or DBP more than 110.? Plan to start her on oral antihypertensives in the evening.? Started on acyclovir and prednisone for Kelly's palsy as recommended by neurology, appreciate recommendations.? If patient's blood pressure is stable tomorrow we will plan for discharge. Sg Campos MD
[2025-02-20] MEDS: predniSONE 20 MG TABLET 60 MG PO (15:54)
[2025-02-20] MEDS: Lisinopril 20 MG TABLET PO (15:55)
[2025-02-20] MEDS: ACYCLOVIR 800 MG TABLET PO ×2 (15:55→22:04)
[2025-02-20 18:05] LABS: Collection Type, Urine Clean Catch
[2025-02-20 18:16] LABS: Bacteria,Urine Rare; Bilirubin,Urine Negative (Negative); Blood,Urine 1+ (Negative); Clarity,Urine Turbid (Clear/Hazy); Color,Urine Lt-Yellow (Lt Yel-Yel); Glucose, Urine Negative (Negative); Ketones,Urine 1+ (Negative); Leukocyte Esterase,Urine Positive (Negative); Nitrite,Urine Negative (Negative); Protein,Urine 2+ (Neg - Trace); RBC,Urine 7 /hpf (0-3); Specific Gravity,Urine 1.019 (1.001-1.035); Squamous Epithelial Cell,Urine 7 /hpf (0-5); Urobilinogen,Urine Negative mg/dL (0.0-1.0); WBC,Urine 17 /hpf (0-5)
[2025-02-21] VITALS (12 sets, daily range): BP systolic 142–210; BP diastolic 85–151; PULSE 68–102; RESP 13–20; TEMP 35.9–36.3; O2SAT 96–99; BMI 54.9
[2025-02-21] MEDS: ACYCLOVIR 800 MG TABLET PO ×3 (06:21→21:15)
[2025-02-21] MEDS: HEPARIN SOD INJ 5000 UNIT/ML VIAL SC ×3 (06:21→21:15)
[2025-02-21 07:19] LABS: Basophils % (Auto) 0 % (0-2.5); Eosinophils % (Auto) 0 % (0-10); Hematocrit 42.3 % (36.0-46.0); Hemoglobin 13.9 g/dL (12.0-16.0); Immature Granulocytes % (Auto) 0 % (0-0); Immature Granulocytes Auto 0.05 Thou/mm3 (0.00-0.00); Lymphocytes # (Auto) 2.5 Thou/mm3 (1.0-4.8); Lymphocytes % (Auto) 16 % (10-50); Mean Corpuscular HGB Conc 32.9 g/dl (31.0-37.0); Mean Corpuscular Hemoglobin 25.2 pg (25.0-35.0); Mean Corpuscular Volume 77 fL (80-100); Monocytes # (Auto) 0.6 Thou/mm3 (0.0-0.8); Monocytes % (Auto) 4 % (0-12); Neutrophils # (Auto) 12.3 Thou/mm3 (1.8-7.7); Neutrophils % (Auto) 80 % (37-80); Nucleated Red Blood Cell % 0 /100 WBC (0); Platelet Count 352 Thou/mm3 (140-440); RDW Standard Deviation 38.3 fL (36.4-46.3); Red Blood Count 5.51 Miln/mm3 (4.00-5.20); White Blood Count 15.5 Thou/mm3 (3.6-11.0)
[2025-02-21 07:37] LABS: Alanine Aminotransferase 22 U/L (10-49); Albumin, Serum 4.5 gm/dL (3.5-5.0); Albumin/Globulin Ratio 1.3 (1.2-2.2); Alkaline Phosphatase 101 U/L (46-116); Anion Gap 10 (7-16); Aspartate Amino Transferase 18 U/L (0-34); BUN/Creatinine Ratio 14 Ratio (12-20); Bilirubin,Total 0.6 mg/dL (0.3-1.2); Blood Urea Nitrogen 10 mg/dL (9-23); Calcium 9.5 mg/dL (8.3-10.6); Calcium (Corrected) 9.5 mg/dL (8.5-10.1); Carbon Dioxide 24.2 mMol/L (20.0-31.0); Chloride 105 mMol/L (98-107); Creatinine (Component) 0.7 mg/dL (0.6-1.3); Estimated Creatinine Clearance 159.8 mL/min (>60); Globulin 3.6 gm/dL (2.3-3.5); Glucose 105 mg/dL (74-106); Magnesium 2.2 mg/dL (1.6-2.6); Osmolality,Calculated 276 (275-295); Phosphorous 3.6 mg/dL (2.4-5.1); Sodium 139 mMol/L (136-145); Total Protein 8.1 gm/dL (5.7-8.2); eGFR > 60 See Note
[2025-02-21] MEDS: predniSONE 20 MG TABLET 60 MG PO (08:25)
[2025-02-21] MEDS: Lisinopril 20 MG TABLET PO ×2 (08:26→09:50)
[2025-02-21] MEDS: ASPIRIN EC 81 MG TABEC PO (08:28)
--- NOTE | 2025-02-21 09:11 | ESPR_ITS ---
Documentation for date of: 02/21/25 Subjective Subjective Interval history: Not overnight acute events This morning at the bedside, patient is AOx4, saturating well on room air, responding questions properly, tolerating p.o. denies any acute complaints at the moment denied headache, chest pain, palpitations or any other associated symptoms she stated that continues to messages on her face on the affected area. Exam Vital Signs Temp Pulse Resp BP Pulse Ox O2 Del Method 96.8 F 83 20 188/151 H 96 Room Air 02/21/25 08:00 02/21/25 08:26 02/21/25 08:00 02/21/25 08:26 02/21/25 08:00 02/21/25 08:00 Narrative Exam General: No acute distress, obese, saturating well on room air HEENT: NC/AT, PERRL, EOMI, Good conjugate gaze, moist mucous membranes, right facial drooping Neck: Supple, No masses, No adenopathy, carotid pulse 2+ bilaterally without bruits, No JVD, normal range of motion. Chest: Symmetrical, atraumatic, and with equal expansion , Nontender on palpation no deformity and no crepitus. CVS: S1 and S2 present, Regular rate and rhythm, No murmurs, rubs or gallops perceived during auscultation. Lungs: Normal respiratory effort, CTAB, no wheezing, rhonchi or rales perceived during auscultation, No intercostal or subcostal retraction. Abdomen : Soft, increased abdominal girth no tenderness to palpation, no guarding ,no rebound, +BS, no organomegaly. Extremities: No edema, warm well perfused, normal tone and ROM, strength and sensation intact, cap refill less than 2, +2 dp equal bilaterally, able to move all 4 extremities spontaneously. Skin: Intact, no rashes, no lesions, no erythema or jaundice noted Neuro: AOx4, right facial weakness and right facial droop, reflex symmetric and sensation normal, GCS 15 Psych: Appropriate mood and affect. Objective Labs 02/21/25 06:47 02/21/25 06:47 Labs: Laboratory Results - last 24 hr 02/20/25 02/21/25 17:15 06:47 WBC 15.5 H RBC 5.51 H Hgb 13.9 Hct 42.3 MCV 77 L MCH 25.2 MCHC 32.9 RDW Std Deviation 38.3 Plt Count 352 Neut % (Auto) 80 Lymph % (Auto) 16 [place] % (Auto) 4 Eos % (Auto) 0 Baso % (Auto) 0 Neut # (Auto) 12.3 H Lymph # (Auto) 2.5 [place] # (Auto) 0.6 Eos # (Auto) 0.0 Baso # (Auto) 0.0 Immature Gran # (Auto) 0.05 H Absolute Nucleated RBC 0.00 Immature Gran % 0 Nucleated RBC % 0 Sodium 139 Potassium 4.0 Chloride 105 Carbon Dioxide 24.2 Anion Gap 10 BUN 10 Creatinine 0.7 Estim Creat Clear Calc 159.8 eGFR > 60 BUN/Creatinine Ratio 14 Glucose 105 Calculated Osmolality 276 Calcium 9.5 Corrected Calcium 9.5 Phosphorus 3.6 Magnesium 2.2 Total Bilirubin 0.6 AST 18 ALT 22 Alkaline Phosphatase 101 Total Protein 8.1 Albumin 4.5 Globulin 3.6 H Albumin/Globulin Ratio 1.3 Ur Collection Type Clean Catch Urine Color Lt-Yellow Urine Clarity Turbid A Urine pH 6.0 Ur Specific [place] 1.019 Urine Protein 2+ A Urine Glucose (UA) Negative Urine Ketones 1+ A Urine Blood 1+ A Urine Nitrite Negative Urine Bilirubin Negative Urine Urobilinogen (Auto) Negative Ur Leukocyte Esterase Positive Urine RBC 7 H Urine WBC 17 H Ur Squamous Epith Cells 7 H Urine Bacteria Rare Quality Measures Quality Measures none Assessment & Plan Assessment Current Active Medications: Generic Name Dose Route Start Last Admin Trade Name Freq PRN Reason Stop Dose Admin Acetaminophen 650 mg 02/19/25 16:42 Acetaminophen Supp [address] 03/21/25 16:41 Q6H PRN pain and fever Protocol Acetaminophen 650 mg 02/19/25 20:42 02/20/25 13:26 Acetaminophen 325 Mg Tablet PO 03/21/25 20:41 650 mg Q6HR PRN Administration mild pain or fever Protocol Acyclovir 800 mg 02/20/25 15:00 02/21/25 06:21 Acyclovir 800 Mg Tablet PO 02/27/25 14:59 800 mg TID KEYSHA Administration Aspirin 81 mg 02/19/25 17:00 02/21/25 08:28 Aspirin Ec 81 Mg Tabec PO 03/21/25 16:59 81 mg DAILY KEYSHA Administration Heparin Sodium (Porcine) 5,000 unit 02/19/25 22:00 02/21/25 06:21 Heparin Sod Inj 5000 Unit/Ml Vial SC 03/05/25 21:59 5,000 unit Q8HR KEYSHA Administration Labetalol HCl 20 mg 02/19/25 20:00 Labetalol Inj 5 Mg/Ml Vial 20 Ml IVP 03/21/25 19:59 Q6H PRN SBP >180 DBP > 110 Lisinopril 20 mg 02/20/25 14:55 02/21/25 08:26 Lisinopril 20 Mg Tablet PO 03/22/25 14:54 20 mg QDAY KEYSHA Administration Ondansetron HCl 4 mg 02/19/25 16:42 Ondansetron Inj 2 Mg/Ml Inj 2 Ml IV 03/21/25 16:41 Q6H PRN NAUSEA OR VOMITING Protocol Prednisone 60 mg 02/20/25 15:00 02/21/25 08:25 Prednisone 20 Mg Tablet PO 02/25/25 14:59 60 mg QDAY KEYSHA Administration Plan #Kelly's palsy Patient had a viral upper respiratory infection 2 weeks before before presentation CT head was negative for hemorrhage, mass or midline shift Brain MRI was negative for acute stroke Plan: Per neurology standpoint patient can be discharged home ? Continue Aciclovir 800 mg 3 times daily ? Continue prednisone 60 mg daily for 5 days and taper off by 10 mg daily for 5 more days ? Continue facial strengthening exercises with massage and TENS unit ? Physical therapy outpatient upon discharge #Hypertensive emergency Plan: ? Continue blood pressure control by primary team Patient discussed with my attending Dr Declan Main MD PGY-3 Disclaimer: Despite multiple revisions, due to the dictation software being used, the document bellorly may not be free of grammatical errors including phonetic/typographic errors. However, this does not deter from our commitment to providing health care in the patient's best interest in mind. Attending Provider Attestation/Addendum I personally have seen and examined the patient at the bedside and I agree with resident's findings, assessment and plan of care. Patient's right-sided facial weakness of lower motor neuron type will improve with time. Needs better control of blood pressure, consider doing sleep study as an outpatient and may need to consider further workup for secondary hypertension.
--- NOTE | 2025-02-21 10:49 | PC.SS ---
SS follow up note; Patient will discharge home today.
[2025-02-21] MEDS: amLODIPine BESYLATE 5 MG TABLET PO (14:11)
[2025-02-21] MEDS: LABETALOL INJ 5 MG/ML VIAL 20 ML 20 MG IVP (14:12)
--- NOTE | 2025-02-21 15:19 | XR_ITS ---
Examination: Renal sonography Ultrasound Doppler assessment kidneys and renal arteries Exam date and time: February 21, 2025 1607 hours INDICATIONS: Hypertension beginning 3 days ago, malignant hypertension TECHNIQUE AND FINDINGS: Grayscale sonographic images kidneys Doppler sonographic evaluation of the kidneys, assessment peak arterial velocities, calculation resistive indices and renal aortic ratios Right kidney 14.2 cm No elevation peak systolic velocities right kidney No significant elevation resistive indices Normal renal aortic ratios Left kidney 13.1 cm No elevation peak systolic velocities No significant elevation resistive indices Normal renal aortic ratios IMPRESSION: No sonographic findings of renal artery stenosis
--- NOTE | 2025-02-21 15:27 | ESPR_ITS ---
<Statement entered by Torin Christine MD - 02/22/25 07:40> Senior Resident Attestation: I supervised/discussed management plan with technical support intern physician Dr. Chaves, and was involved in the care of this patient. I personally saw and examined the patient and discussed the assessment and plan with the entire medicine team, including my attending. I agree with the assessment and plan as documented. Patient's blood pressure remains significantly elevated, will order additional workup for pheochromocytoma and Pryor syndrome for tomorrow. Patient's care was discussed with attending physician, Dr. Marr. Torin Christine MD PGY-2. Documentation for date of: 02/21/25 Subjective Subjective Interval history: No acute overnight events reported. Patient seen and examined at bedside this morning. Patient continues to have right-sided facial droop patient is started on acyclovir and prednisone yesterday. Patient states that she no longer has a headache which has improved however her continues to be elevated blood pressure despite lisinopril 40 mg labetalol pushes and amlodipine 5 mg. Will add hydralazine PO 3 times daily and will continue to monitor pressure improvement. Will also order work up for pheochromocytoma and renal artery stenosis. Although urinalysis is leukocyte esterase positive and pyuria and bacteriuria patient is asymptomatic denies any dysuria or urgency therefore we will withhold antibiotics for now. Exam Vital Signs Temp Pulse Resp BP Pulse Ox O2 Del Method 96.6 F L 102 H 18 210/138 H 97 Room Air 02/21/25 12:00 02/21/25 14:12 02/21/25 12:00 02/21/25 14:12 02/21/25 12:00 02/21/25 12:00 Narrative Exam GENERAL: A&Ox3 . Awake, obese young female, does not appear to be in distress NEURO: no focal neurological deficits noted other than right sided facial droop HEENT: Atraumatic, Normocephalic. mucous membranes moist. Eyes open, symmetrical, & clear HEART: Normal Heart Sounds LUNGS: Clear to auscultation with no wheezing or crackles. ABDOMEN: soft, non-distended, non-tender, bowel sounds heard, no guarding or rebound tenderness SKIN: No Rash or ecchymoses EXTREMITIES: No edema, tenderness, able to move all 4 extremities, pedal pulses palpated Objective Labs 02/22/25 05:30 02/22/25 05:30 Labs: Laboratory Results - last 24 hr 02/20/25 02/21/25 17:15 06:47 WBC 15.5 H RBC 5.51 H Hgb 13.9 Hct 42.3 MCV 77 L MCH 25.2 MCHC 32.9 RDW Std Deviation 38.3 Plt Count 352 Neut % (Auto) 80 Lymph % (Auto) 16 [place] % (Auto) 4 Eos % (Auto) 0 Baso % (Auto) 0 Neut # (Auto) 12.3 H Lymph # (Auto) 2.5 [place] # (Auto) 0.6 Eos # (Auto) 0.0 Baso # (Auto) 0.0 Immature Gran # (Auto) 0.05 H Absolute Nucleated RBC 0.00 Immature Gran % 0 Nucleated RBC % 0 Sodium 139 Potassium 4.0 Chloride 105 Carbon Dioxide 24.2 Anion Gap 10 BUN 10 Creatinine 0.7 Estim Creat Clear Calc 159.8 eGFR > 60 BUN/Creatinine Ratio 14 Glucose 105 Calculated Osmolality 276 Calcium 9.5 Corrected Calcium 9.5 Phosphorus 3.6 Magnesium 2.2 Total Bilirubin 0.6 AST 18 ALT 22 Alkaline Phosphatase 101 Total Protein 8.1 Albumin 4.5 Globulin 3.6 H Albumin/Globulin Ratio 1.3 Ur Collection Type Clean Catch Urine Color Lt-Yellow Urine Clarity Turbid A Urine pH 6.0 Ur Specific [place] 1.019 Urine Protein 2+ A Urine Glucose (UA) Negative Urine Ketones 1+ A Urine Blood 1+ A Urine Nitrite Negative Urine Bilirubin Negative Urine Urobilinogen (Auto) Negative Ur Leukocyte Esterase Positive Urine RBC 7 H Urine WBC 17 H Ur Squamous Epith Cells 7 H Urine Bacteria Rare Quality Measures Quality Measures none Assessment & Plan Assessment Current Active Medications: Generic Name Dose Route Start Last Admin Trade Name Freq PRN Reason Stop Dose Admin Acetaminophen 650 mg 02/19/25 16:42 Acetaminophen Supp 650 Mg Supp [place] 03/21/25 16:41 Q6H PRN pain and fever Protocol Acetaminophen 650 mg 02/19/25 20:42 02/20/25 13:26 Acetaminophen 325 Mg Tablet PO 03/21/25 20:41 650 mg Q6HR PRN Administration mild pain or fever Protocol Acyclovir 800 mg 02/20/25 15:00 02/21/25 14:12 Acyclovir 800 Mg Tablet PO 04/22/25 14:59 800 mg TID KEYSHA Administration Amlodipine Besylate 5 mg 02/21/25 13:15 02/21/25 14:11 Amlodipine Besylate 5 Mg Tablet PO 03/23/25 13:14 5 mg QDAY KEYSHA Administration Aspirin 81 mg 02/19/25 17:00 02/21/25 08:28 Aspirin Ec 81 Mg Tabec PO 03/21/25 16:59 81 mg DAILY KEYSHA Administration Heparin Sodium (Porcine) 5,000 unit 02/19/25 22:00 02/21/25 14:13 Heparin Sod Inj 5000 Unit/Ml Vial SC 03/05/25 21:59 5,000 unit Q8HR KEYSHA Administration Hydralazine HCl 10 mg 02/21/25 22:00 Hydralazine Hcl 10 Mg Tablet PO 03/23/25 21:59 TID KEYSHA Lisinopril 40 mg 02/22/25 09:00 Lisinopril 20 Mg Tablet PO 03/24/25 08:59 QDAY [facility] Ondansetron HCl 4 mg 02/19/25 16:42 Ondansetron Inj 2 Mg/Ml Inj 2 Ml IV 03/21/25 16:41 Q6H PRN NAUSEA OR VOMITING Protocol Prednisone 60 mg 02/20/25 15:00 02/21/25 08:25 Prednisone 20 Mg Tablet PO 02/25/25 14:59 60 mg QDAY KEYSHA Administration Plan Ms. George is a 29-year-old female with no significant past medical history presented to the ED sent from urgent care after she was found to have systolic blood pressure above 200s and right sided facial droop. Pt is admitted for neuro recommendations and management of hypertension. #Hypertensive emergency/urgency #Primary hypertension - Patient went to urgent care found to have systolic blood pressure above 200 was sent to the ED at [facility]. - In the ED patient had a blood pressure of 210/147 -Patient was given hydralazine x 2, labetalol x 2 Plan: -Will continue to monitor on telemetry -Pt is started on lisinopril 40mg daily, amlodipine 5mg daily and Hydralazine 10mg PO daily #Kelly's palsy - Patient has a right side facial droop which began on the night of 02/18 without any other deficits, no motor weakness in the extremities or slurred speech - Brain MRI is negative for acute hemorrhage mass effect or midline shift and no acute infarct noted - CT of head is also negative for acute hemorrhage mass effect or midline shift Plan: Neurology is consulted, appreciate recommendations - Per neurology recs aspirin 81 mg is started - Pt is started on acyclovir 800 mg 3 times daily for 10 days, prednisone 60 mg for 5 days and taper for additional 5 days. -As per neuro recommendation pt is encourage to perform facial exercises and use tens unit. And physical therapy outpatient #Asymtomatic bacteriuria -Urinalysis positive for leukocyte esterase, hematuria, bacteriuria and pyuria. -Patient denies any UTI-like symptoms including dysuria or urgency. - Will hold antibiotics since patient is asymptomatic #Morbid Obesity -Pt's BMI is 55.8 -Follow up outpatient for weight-loss options Health Maintenance Disposition: Telemetry for IV labetalol pushes for Hypertensive emergency DVT Prophylaxis: Heparin 5000 units SC Q8 hrs GI Prophylaxis: not indicated Diet: regular diet Lines: Peripheral lines Code status: Full Assessment and plan discussed with my senior resident Dr. Christine & attending physician Dr. Tejinder Chaves (PGY-1)- Internal medicine resident Attending Provider Attestation/Addendum Nubia Martinez, , attest that I was physically present for the [place]en portions of the service and evaluated the patient with the resident and I reviewed and discussed the case with the resident and agree with the resident's findings and plans of care as documented above Patient seen and evaluated this AM. patient has no active complaints at this time. She is on prednisone and acyclovir due to Kelly's palsy. Right facial palsy noted. BP remains elevated. Concern for pheochromocytoma given elevated BP and tachycardia. Will obtain 24h urine metanephrines. Lisinopril increased to 40mg PO daily, and added amlodipine and hydralazine. Anticipate DC tomorrow if BP is better controlled and 24h urine collection is obtained.
[2025-02-21] MEDS: LABETALOL INJ 5 MG/ML VIAL 20 ML IVP (20:38)
[2025-02-21] MEDS: hydrALAZINE HCL 10 MG TABLET PO (21:14)
[2025-02-22] VITALS (17 sets, daily range): BP systolic 130–185; BP diastolic 85–115; PULSE 61–94; RESP 16–26; TEMP 35.9–36.8; O2SAT 95–99; BMI 54.5; BMI 54.8
[2025-02-22] MEDS: ACYCLOVIR 800 MG TABLET PO ×3 (05:13→21:13)
[2025-02-22] MEDS: HEPARIN SOD INJ 5000 UNIT/ML VIAL SC ×3 (05:13→21:15)
[2025-02-22] MEDS: hydrALAZINE HCL 10 MG TABLET PO (05:13)
[2025-02-22 06:09] LABS: Basophils % (Auto) 0 % (0-2.5); Eosinophils % (Auto) 0 % (0-10); Hematocrit 41.9 % (36.0-46.0); Hemoglobin 13.7 g/dL (12.0-16.0); Immature Granulocytes % (Auto) 0 % (0-0); Immature Granulocytes Auto 0.05 Thou/mm3 (0.00-0.00); Lymphocytes % (Auto) 25 % (10-50); Mean Corpuscular HGB Conc 32.7 g/dl (31.0-37.0); Mean Corpuscular Hemoglobin 25.5 pg (25.0-35.0); Mean Corpuscular Volume 78 fL (80-100); Monocytes # (Auto) 0.9 Thou/mm3 (0.0-0.8); Monocytes % (Auto) 6 % (0-12); Neutrophils % (Auto) 69 % (37-80); Nucleated Red Blood Cell % 0 /100 WBC (0); Platelet Count 363 Thou/mm3 (140-440); RDW Standard Deviation 39.4 fL (36.4-46.3); Red Blood Count 5.38 Miln/mm3 (4.00-5.20)
[2025-02-22 06:41] LABS: Alanine Aminotransferase 29 U/L (10-49); Albumin, Serum 4.3 gm/dL (3.5-5.0); Albumin/Globulin Ratio 1.3 (1.2-2.2); Alkaline Phosphatase 91 U/L (46-116); Anion Gap 7 (7-16); Aspartate Amino Transferase 23 U/L (0-34); BUN/Creatinine Ratio 17 Ratio (12-20); Bilirubin,Total 0.4 mg/dL (0.3-1.2); Blood Urea Nitrogen 12 mg/dL (9-23); Calcium 9.2 mg/dL (8.3-10.6); Calcium (Corrected) 9.2 mg/dL (8.5-10.1); Carbon Dioxide 25.1 mMol/L (20.0-31.0); Chloride 108 mMol/L (98-107); Creatinine (Component) 0.7 mg/dL (0.6-1.3); Estimated Creatinine Clearance 159.8 mL/min (>60); Globulin 3.4 gm/dL (2.3-3.5); Glucose 95 mg/dL (74-106); Magnesium 2.3 mg/dL (1.6-2.6); Osmolality,Calculated 279 (275-295); Phosphorous 3.7 mg/dL (2.4-5.1); Potassium 3.6 mMol/L (3.4-5.1); Sodium 140 mMol/L (136-145); Total Protein 7.7 gm/dL (5.7-8.2); eGFR > 60 See Note
[2025-02-22] MEDS: amLODIPine BESYLATE 5 MG TABLET PO ×2 (08:45→15:41)
[2025-02-22] MEDS: predniSONE 20 MG TABLET 60 MG PO (08:46)
[2025-02-22] MEDS: ASPIRIN EC 81 MG TABEC PO (08:46)
[2025-02-22] MEDS: Lisinopril 20 MG TABLET 40 MG PO (08:47)
--- NOTE | 2025-02-22 09:27 | PC.NURSE ---
Dr. Chaves in to see patient. Aware of blood pressures. Does not want labetolol to be given due to possible interference/false positive labs.
--- NOTE | 2025-02-22 11:16 | ESPR_ITS ---
Documentation for date of: 02/22/25 Subjective Subjective Interval history: Not overnight acute events This morning at the bedside, patient is AOx4, saturating well on room air, responding questions properly, tolerating p.o. denies any acute complaints at the moment denied headache, chest pain, palpitations or any other associated symptoms she stated that continues to messages on her face on the affected area. Due to patient blood pressure has been uncontrolled renal ultrasound was ordered that was negative renal artery stenosis or neuromuscular dysplasia. Per primary team 24-hour metanephrines collection in urine were ordered. Exam Vital Signs Temp Pulse Resp BP Pulse Ox O2 Del Method 98.2 F 89 18 149/115 H 99 Room Air 02/22/25 10:02/22/25 10:02/22/25 10:02/22/25 10:02/22/25 10:02/22/25 04:00 Narrative Exam General: No acute distress, obese, saturating well on room air HEENT: NC/AT, PERRL, EOMI, Good conjugate gaze, moist mucous membranes, right facial drooping Neck: Supple, No masses, No adenopathy, carotid pulse 2+ bilaterally without bruits, No JVD, normal range of motion. Chest: Symmetrical, atraumatic, and with equal expansion , Nontender on palpation no deformity and no crepitus. CVS: S1 and S2 present, Regular rate and rhythm, No murmurs, rubs or gallops perceived during auscultation. Lungs: Normal respiratory effort, CTAB, no wheezing, rhonchi or rales perceived during auscultation, No intercostal or subcostal retraction. Abdomen : Soft, increased abdominal girth no tenderness to palpation, no guarding ,no rebound, +BS, no organomegaly. Extremities: No edema, warm well perfused, normal tone and ROM, strength and sensation intact, cap refill less than 2, +2 dp equal bilaterally, able to move all 4 extremities spontaneously. Skin: Intact, no rashes, no lesions, no erythema or jaundice noted Neuro: AOx4, right facial weakness and right facial droop, reflex symmetric and sensation normal, GCS 15 Psych: Appropriate mood and affect. Objective Labs 02/22/25 05:30 02/22/25 05:30 Labs: Laboratory Results - last 24 hr 02/22/25 05:30 WBC 16.0 H RBC 5.38 H Hgb 13.7 Hct 41.9 MCV 78 L MCH 25.5 MCHC 32.7 RDW Std Deviation 39.4 Plt Count 363 Neut % (Auto) 69 Lymph % (Auto) 25 [place] % (Auto) 6 Eos % (Auto) 0 Baso % (Auto) 0 Neut # (Auto) 11.0 H Lymph # (Auto) 4.0 [place] # (Auto) 0.9 H Eos # (Auto) 0.0 Baso # (Auto) 0.0 Immature Gran # (Auto) 0.05 H Absolute Nucleated RBC 0.00 Immature Gran % 0 Nucleated RBC % 0 Sodium 140 Potassium 3.6 Chloride 108 H Carbon Dioxide 25.1 Anion Gap 7 BUN 12 Creatinine 0.7 Estim Creat Clear Calc 159.8 eGFR > 60 BUN/Creatinine Ratio 17 Glucose 95 Calculated Osmolality 279 Calcium 9.2 Corrected Calcium 9.2 Phosphorus 3.7 Magnesium 2.3 Total Bilirubin 0.4 AST 23 ALT 29 Alkaline Phosphatase 91 Total Protein 7.7 Albumin 4.3 Globulin 3.4 Albumin/Globulin Ratio 1.3 Quality Measures Quality Measures none Assessment & Plan Assessment Current Active Medications: Generic Name Dose Route Start Last Admin Trade Name Freq PRN Reason Stop Dose Admin Acetaminophen 650 mg 02/19/25 16:42 Acetaminophen Supp 650 Mg Supp [place] 03/21/25 16:41 Q6H PRN pain and fever Protocol Acetaminophen 650 mg 02/19/25 20:42 02/20/25 13:26 Acetaminophen 325 Mg Tablet PO 03/21/25 20:41 650 mg Q6HR PRN Administration mild pain or fever Protocol Acyclovir 800 mg 02/20/25 15:00 02/22/25 05:13 Acyclovir 800 Mg Tablet PO 02/27/25 14:59 800 mg TID KEYSHA Administration Amlodipine Besylate 5 mg 02/22/25 09:00 02/22/25 08:45 Amlodipine Besylate 5 Mg Tablet PO 03/24/25 08:59 5 mg QDAY KEYSHA Administration Aspirin 81 mg 02/19/25 17:00 02/22/25 08:46 Aspirin Ec 81 Mg Tabec PO 03/21/25 16:59 81 mg DAILY KEYSHA Administration Heparin Sodium (Porcine) 5,000 unit 02/19/25 22:00 02/22/25 05:13 Heparin Sod Inj 5000 Unit/Ml Vial SC 03/05/25 21:59 5,000 unit Q8HR KEYSHA Administration Hydralazine HCl 10 mg 02/21/25 22:00 02/22/25 05:13 Hydralazine Hcl 10 Mg Tablet PO 03/23/25 21:59 10 mg TID KEYSHA Administration Labetalol HCl 5 mg 02/21/25 20:08 02/21/25 20:38 Labetalol Inj 5 Mg/Ml Vial 20 Ml IVP 03/23/25 20:07 5 mg Q4H PRN Administration SBP >180 or DBP >120 and HR >70 Lisinopril 40 mg 02/22/25 09:00 02/22/25 08:47 Lisinopril 20 Mg Tablet PO 03/24/25 08:59 40 mg QDAY KEYSHA Administration Ondansetron HCl 4 mg 02/19/25 16:42 Ondansetron Inj 2 Mg/Ml Inj 2 Ml IV 03/21/25 16:41 Q6H PRN NAUSEA OR VOMITING Protocol Prednisone 60 mg 02/20/25 15:00 02/22/25 08:46 Prednisone 20 Mg Tablet PO 02/25/25 14:59 60 mg QDAY KEYSHA Administration Plan #Kelly's palsy Patient had a viral upper respiratory infection 2 weeks before before presentation CT head was negative for hemorrhage, mass or midline shift Brain MRI was negative for acute stroke Plan: Per neurology standpoint patient can be discharged home ? Continue Aciclovir 800 mg 3 times daily for 10 days total ? Continue prednisone 60 mg daily for 5 days and taper off by 10 mg daily for 5 more days ( total of 10 days) ? Continue facial strengthening exercises with massage and TENS unit ? Physical therapy outpatient upon discharge #Uncontrolled hypertension #Hypertensive emergency resolved Plan: ? Continue blood pressure control by primary team Patient discussed with my attending Dr Declan Main MD PGY-3 Disclaimer: Despite multiple revisions, due to the dictation software being used, the document lio may not be free of grammatical errors including phonetic/typographic errors. However, this does not deter from our commitment to providing health care in the patient's best interest in mind. Attending Provider Attestation/Addendum I personally have seen and examined the patient at the bedside and agree with resident's findings, assessment and plan of care. Her right hemiface strength is improving. Workup for secondary hypertension is in progress. She would need overnight sleep study as an outpatient to confirm the diagnosis/rule out obstructive sleep apnea.
[2025-02-22] MEDS: hydrALAZINE HCL 25 MG TABLET PO (13:49)
--- NOTE | 2025-02-22 16:30 | ESPR_ITS ---
<Statement entered by Torin Christine MD - 02/23/25 07:46> Senior Resident Attestation: I supervised/discussed management plan with internet assessor physician Dr. Chaves, and was involved in the care of this patient. I personally saw and examined the patient and discussed the assessment and plan with the entire medicine team, including my attending. I agree with the assessment and plan as documented. Patient continues to have elevated blood pressure despite of 3 antihypertensive medications. Continue to blood metanephrines. Patient's care was discussed with attending physician, Dr. Marr. Torin Christine MD PGY-2. Documentation for date of: 02/22/25 Subjective Subjective Interval history: Overnight team reported patient's blood pressure was elevated and labetalol 5 mg x 1 was given. Patient seen and examined at bedside this morning, patient is saturating well on room air continues to have right facial droop. Patient denies any headache dizziness or blurry vision. Currently patient is on 3 antihypertensive including lisinopril, amlodipine and hydralazine oral and continues to have elevated blood pressure. Renal ultrasound was within normal limits and no fibrocystic changes of the renal artery are observed. Will continue collect 24-hour urine for metanephrines, 8 AM cortisol is collected and will order plasma aldosterone to renin activity ratio to rule out primary aldosteronism. Patient has a mild leukocytosis is secondary to steroids and the remaining of labs are within normal limits. Patient has no other complaints. Continue to monitor blood pressure before clear for discharge. Exam Vital Signs Temp Pulse Resp BP Pulse Ox O2 Del Method 97.6 F 84 17 180/108 H 98 Room Air 02/22/25 15:35 02/22/25 15:41 02/22/25 15:35 02/22/25 15:41 02/22/25 15:35 02/22/25 04:00 Narrative Exam GENERAL: A&Ox3 . Awake, obese young female, does not appear to be in distress NEURO: no focal neurological deficits noted other than right sided facial droop HEENT: Atraumatic, Normocephalic. mucous membranes moist. Eyes open, symmetrical, & clear HEART: Normal Heart Sounds LUNGS: Clear to auscultation with no wheezing or crackles. ABDOMEN: soft, non-distended, non-tender, bowel sounds heard, no guarding or rebound tenderness SKIN: No Rash or ecchymoses EXTREMITIES: No edema, tenderness, able to move all 4 extremities, pedal pulses palpated Objective Labs 02/23/25 04:56 02/23/25 04:56 Labs: Laboratory Results - last 24 hr 02/22/25 05:30 WBC 16.0 H RBC 5.38 H Hgb 13.7 Hct 41.9 MCV 78 L MCH 25.5 MCHC 32.7 RDW Std Deviation 39.4 Plt Count 363 Neut % (Auto) 69 Lymph % (Auto) 25 [place] % (Auto) 6 Eos % (Auto) 0 Baso % (Auto) 0 Neut # (Auto) 11.0 H Lymph # (Auto) 4.0 [place] # (Auto) 0.9 H Eos # (Auto) 0.0 Baso # (Auto) 0.0 Immature Gran # (Auto) 0.05 H Absolute Nucleated RBC 0.00 Immature Gran % 0 Nucleated RBC % 0 Sodium 140 Potassium 3.6 Chloride 108 H Carbon Dioxide 25.1 Anion Gap 7 BUN 12 Creatinine 0.7 Estim Creat Clear Calc 159.8 eGFR > 60 BUN/Creatinine Ratio 17 Glucose 95 Calculated Osmolality 279 Calcium 9.2 Corrected Calcium 9.2 Phosphorus 3.7 Magnesium 2.3 Total Bilirubin 0.4 AST 23 ALT 29 Alkaline Phosphatase 91 Total Protein 7.7 Albumin 4.3 Globulin 3.4 Albumin/Globulin Ratio 1.3 Quality Measures Quality Measures none Assessment & Plan Assessment Current Active Medications: Generic Name Dose Route Start Last Admin Trade Name Freq PRN Reason Stop Dose Admin Acetaminophen 650 mg 02/19/25 16:42 Acetaminophen Supp 650 Mg Supp [place] 03/21/25 16:41 Q6H PRN pain and fever Protocol Acetaminophen 650 mg 02/19/25 20:42 02/20/25 13:26 Acetaminophen 325 Mg Tablet PO 03/21/25 20:41 650 mg Q6HR PRN Administration mild pain or fever Protocol Acyclovir 800 mg 02/20/25 15:00 02/22/25 13:50 Acyclovir 800 Mg Tablet PO 02/27/25 14:59 800 mg TID KEYSHA Administration Amlodipine Besylate 10 mg 02/23/25 09:00 Amlodipine Besylate 5 Mg Tablet PO 03/25/25 08:59 QDAY KEYSHA Aspirin 81 mg 02/19/25 17:00 02/22/25 08:46 Aspirin Ec 81 Mg Tabec PO 03/21/25 16:59 81 mg DAILY KEYSHA Administration Heparin Sodium (Porcine) 5,000 unit 02/19/25 22:00 02/22/25 13:50 Heparin Sod Inj 5000 Unit/Ml Vial SC 03/05/25 21:59 5,000 unit Q8HR KEYSHA Administration Hydralazine HCl 25 mg 02/22/25 14:00 02/22/25 13:49 Hydralazine Hcl 25 Mg Tablet PO 03/24/25 13:59 25 mg TID KEYSHA Administration Labetalol HCl 5 mg 02/21/25 20:08 02/21/25 20:38 Labetalol Inj 5 Mg/Ml Vial 20 Ml IVP 03/23/25 20:07 5 mg Q4H PRN Administration SBP >180 or DBP >120 and HR >70 Lisinopril 40 mg 02/22/25 09:00 02/22/25 08:47 Lisinopril 20 Mg Tablet PO 03/24/25 08:59 40 mg QDAY KEYSHA Administration Ondansetron HCl 4 mg 02/19/25 16:42 Ondansetron Inj 2 Mg/Ml Inj 2 Ml IV 03/21/25 16:41 Q6H PRN NAUSEA OR VOMITING Protocol Prednisone 60 mg 02/20/25 15:00 02/22/25 08:46 Prednisone 20 Mg Tablet PO 02/25/25 14:59 60 mg QDAY KEYSHA Administration Plan Ms. George is a 29-year-old female with no significant past medical history presented to the ED sent from urgent care after she was found to have systolic blood pressure above 200s and right sided facial droop. Pt is admitted for neuro recommendations and management of hypertension. #Hypertensive emergency/urgency #Primary hypertension -differentials for resistant HTN include renal artery stenosis, pheochromocytoma, obesity/MANDEEP, primary aldosteronism - Patient went to urgent care found to have systolic blood pressure above 200 was sent to the ED at [facility]. - In the ED patient had a blood pressure of 210/147 -Patient was given hydralazine x 2, labetalol x 2 Plan: -Will continue to monitor on telemetry -Pt is started on lisinopril 40mg daily, amlodipine 5mg daily and Hydralazine 25mg PO daily -Renal ultrasound is within normal limits -Ordered 24-hour urine collection for metanephrines, plasma aldosterone to renin activity ratio, 8 AM cortisol levels #Kelly's palsy - Patient has a right side facial droop which began on the night of 02/18 without any other deficits, no motor weakness in the extremities or slurred speech - Brain MRI is negative for acute hemorrhage mass effect or midline shift and no acute infarct noted - CT of head is also negative for acute hemorrhage mass effect or midline shift Plan: Neurology is consulted, appreciate recommendations - Per neurology recs aspirin 81 mg is started - Pt is started on acyclovir 800 mg 3 times daily for 10 days, prednisone 60 mg for 5 days and taper for additional 5 days. -As per neuro recommendation pt is encourage to perform facial exercises and use tens unit. And physical therapy outpatient #Asymtomatic bacteriuria -Urinalysis positive for leukocyte esterase, hematuria, bacteriuria and pyuria. -Patient denies any UTI-like symptoms including dysuria or urgency. - Will hold antibiotics since patient is asymptomatic #Morbid Obesity -Pt's BMI is 55.8 -Follow up outpatient for weight-loss options Health Maintenance Disposition: Telemetry for IV labetalol pushes for Hypertensive emergency DVT Prophylaxis: Heparin 5000 units SC Q8 hrs GI Prophylaxis: not indicated Diet: regular diet Lines: Peripheral lines Code status: Full Assessment and plan discussed with my senior resident Dr. Christine & attending physician Dr. Tejinder Chaves (PGY-1)- Internal medicine resident Attending Provider Attestation/Addendum Nubia Martinez DO, attest that I was physically present for the allen portions of the service and evaluated the patient with the resident and I reviewed and discussed the case with the resident and agree with the resident's findings and plans of care as documented above Patient seen and evaluated this AM. Patient continues to have uptrending BP, will continue to upitrate hydralazine. 24h Urine metanephrines pending, plasma renin and aldosterone ordered to rule out other secondary causes of uncontrolled HTN.
[2025-02-22] MEDS: hydrALAZINE HCL 25 MG TABLET 50 MG PO (21:13)
[2025-02-23] VITALS (15 sets, daily range): BP systolic 134–210; BP diastolic 84–119; PULSE 62–103; RESP 12–22; TEMP 36–36.8; O2SAT 94–100; BMI 55.1
[2025-02-23] MEDS: hydrALAZINE HCL 25 MG TABLET 50 MG PO ×3 (05:19→21:25)
[2025-02-23] MEDS: HEPARIN SOD INJ 5000 UNIT/ML VIAL SC ×3 (05:19→21:25)
[2025-02-23] MEDS: ACYCLOVIR 800 MG TABLET PO ×3 (05:19→21:25)
[2025-02-23 05:35] LABS: Basophils % (Auto) 0 % (0-2.5); Eosinophils % (Auto) 0 % (0-10); Hematocrit 40.4 % (36.0-46.0); Hemoglobin 13.3 g/dL (12.0-16.0); Immature Granulocytes % (Auto) 0 % (0-0); Immature Granulocytes Auto 0.05 Thou/mm3 (0.00-0.00); Lymphocytes # (Auto) 4.6 Thou/mm3 (1.0-4.8); Lymphocytes % (Auto) 29 % (10-50); Mean Corpuscular HGB Conc 32.9 g/dl (31.0-37.0); Mean Corpuscular Hemoglobin 25.5 pg (25.0-35.0); Mean Corpuscular Volume 77 fL (80-100); Monocytes % (Auto) 6 % (0-12); Neutrophils % (Auto) 64 % (37-80); Nucleated Red Blood Cell % 0 /100 WBC (0); Platelet Count 377 Thou/mm3 (140-440); RDW Standard Deviation 39.7 fL (36.4-46.3); Red Blood Count 5.22 Miln/mm3 (4.00-5.20); White Blood Count 15.7 Thou/mm3 (3.6-11.0)
[2025-02-23 06:12] LABS: Alanine Aminotransferase 32 U/L (10-49); Albumin, Serum 4.2 gm/dL (3.5-5.0); Albumin/Globulin Ratio 1.3 (1.2-2.2); Alkaline Phosphatase 89 U/L (46-116); Anion Gap 9 (7-16); Aspartate Amino Transferase 20 U/L (0-34); BUN/Creatinine Ratio 16 Ratio (12-20); Bilirubin,Total 0.4 mg/dL (0.3-1.2); Blood Urea Nitrogen 13 mg/dL (9-23); Calcium 9.3 mg/dL (8.3-10.6); Calcium (Corrected) 9.3 mg/dL (8.5-10.1); Carbon Dioxide 26.7 mMol/L (20.0-31.0); Chloride 105 mMol/L (98-107); Creatinine (Component) 0.8 mg/dL (0.6-1.3); Estimated Creatinine Clearance 136.8 mL/min (>60); Globulin 3.3 gm/dL (2.3-3.5); Glucose 92 mg/dL (74-106); Magnesium 2.3 mg/dL (1.6-2.6); Osmolality,Calculated 281 (275-295); Phosphorous 3.9 mg/dL (2.4-5.1); Potassium 3.6 mMol/L (3.4-5.1); Sodium 141 mMol/L (136-145); Total Protein 7.5 gm/dL (5.7-8.2); eGFR > 60 See Note
[2025-02-23] MEDS: predniSONE 20 MG TABLET 60 MG PO (08:03)
[2025-02-23] MEDS: ASPIRIN EC 81 MG TABEC PO (08:04)
[2025-02-23] MEDS: amLODIPine BESYLATE 5 MG TABLET 10 MG PO (08:04)
[2025-02-23] MEDS: Lisinopril 20 MG TABLET 40 MG PO (08:05)
--- NOTE | 2025-02-23 11:57 | PC.SS ---
SS follow up note; Patient's blood pressure being managed, if normal patient will discharge home today.
[2025-02-23] MEDS: LABETALOL INJ 5 MG/ML VIAL 20 ML 10 MG IVP (12:07)
--- NOTE | 2025-02-23 12:09 | ECHO_ITS ---
Transthoracic Echo Report Ht (in): 61 Wt (lb): 299 Exam Location: Echo Lab Status: Inpatient Front End Wheel Loader Operator: Kera Stallworth Indications: Procedure Performed: BP: 177 / 108 HR: 68 Technical Quality: Very technically difficult study MEASUREMENTS (Male / Female) Normal Values 2D ECHO LV Ejection Fraction MOD 4C 54.0 % LV Cardiac Index MOD 4C 2179.6 cm?/min?m? LV Ejection Fraction 4C AL 54.5 % LV Cardiac Index 4C AL 2270.1 cm?/min?m? Ascending Aorta Diameter 2.5 cm M-MODE Aortic Root Diameter MM 2.4 cm AV Cusp Separation MM 2.2 cm DOPPLER AV Peak Velocity 159.0 cm/s AV Peak Gradient 10.1 mmHg AV Mean Gradient 5.0 mmHg AV Velocity Time Integral 32.2 cm LVOT Peak Velocity 122.0 cm/s LVOT Peak Gradient 6.0 mmHg LVOT Velocity Time Integral 27.6 cm MV Area PHT 3.7 cm? Mitral E Point Velocity 87.8 cm/s Mitral A Point Velocity 40.3 cm/s Mitral E to A Ratio 2.2 LV E' Lateral Velocity 11.7 cm/s Mitral E to LV E' Lateral Ratio 7.5 LV E' Septal Velocity 7.5 cm/s Mitral E to LV E' Septal Ratio 11.7 PV Peak Velocity 121.0 cm/s PV Peak Gradient 5.9 mmHg FINDINGS Left Ventricle Normal left ventricular size, wall thickness, systolic function with no obvious regional wall motion abnormalities. Normal left ventricular diastolic filling pattern for age. The ejection fraction is visually estimated at 55 %. Right Ventricle The right ventricle is normal in size and systolic function. Left Atrium The left atrium is normal by two-dimensional, color flow and Doppler imaging with no structural abnormalities, no thrombus formation present. Right Atrium The right atrium is normal by two-dimensional imaging, color flow and Doppler imaging with no structural abnormalities, no thrombus formation present. Atrial Septum The interatrial septum appears normal with no evidence of a shunt. Aorta The aorta is normal by two-dimensional, color flow and Doppler interrogation. Mitral Valve The mitral valve is normal by two-dimensional, color flow and Doppler interrogation. There is no significant mitral valve regurgitation, stenosis or prolapse. Aortic Valve The aortic valve is trileaflet and normal by two-dimensional, color flow and Doppler interrogation. There is no significant aortic valve regurgitation. Tricuspid Valve The tricuspid valve is normal by two-dimensional, color flow and Doppler interrogation. There is no significant tricuspid valve regurgitation. Pulmonic Valve The pulmonic valve is not well visualized. There is no significant pulmonic valve regurgitation. Vessels The pulmonary artery appears normal. The inferior vena cava pulmonary and hepatic veins appear normal. Pericardium The pericardium is normal by two-dimensional imaging. There is no significant pericardial effusion. CONCLUSIONS Indication: resistant HTN Normal LV size and function. Estimated EF 55%. The RV is normal in size and systolic function. Trace TR. Angie Hester (Electronically Signed) Final Date: 26 February 2025 08:35
--- NOTE | 2025-02-23 14:53 | ESPR_ITS ---
Documentation for date of: 02/23/25 Subjective Subjective Interval history: Not overnight acute events This morning at the bedside, patient is AOx4, saturating well on room air, responding questions properly, tolerating p.o. denies any acute complaints at the moment denied headache, chest pain, palpitations or any other associated symptoms this that her symptoms has minimally proved and continue to do massage and facial exercises. Per neurology standpoint patient can be discharged and follow-up as an outpatient in 3 weeks and continue physical therapy and TENS therapy as well as massage Exam Vital Signs Temp Pulse Resp BP Pulse Ox O2 Del Method 96.8 F 98 16 177/115 H 99 Room Air 02/23/25 12:00 02/23/25 13:16 02/23/25 12:00 02/23/25 13:16 02/23/25 12:00 02/23/25 12:00 Narrative Exam General: No acute distress, obese, saturating well on room air HEENT: NC/AT, PERRL, EOMI, Good conjugate gaze, moist mucous membranes, right facial drooping Neck: Supple, No masses, No adenopathy, carotid pulse 2+ bilaterally without bruits, No JVD, normal range of motion. Chest: Symmetrical, atraumatic, and with equal expansion , Nontender on palpation no deformity and no crepitus. CVS: S1 and S2 present, Regular rate and rhythm, No murmurs, rubs or gallops perceived during auscultation. Lungs: Normal respiratory effort, CTAB, no wheezing, rhonchi or rales perceived during auscultation, No intercostal or subcostal retraction. Abdomen : Soft, increased abdominal girth no tenderness to palpation, no guarding ,no rebound, +BS, no organomegaly. Extremities: No edema, warm well perfused, normal tone and ROM, strength and sensation intact, cap refill less than 2, +2 dp equal bilaterally, able to move all 4 extremities spontaneously. Skin: Intact, no rashes, no lesions, no erythema or jaundice noted Neuro: AOx4, right facial weakness and right facial droop, reflex symmetric and sensation normal, GCS 15 Psych: Appropriate mood and affect. Objective Labs 02/23/25 04:56 02/23/25 04:56 Labs: Laboratory Results - last 24 hr 02/23/25 04:56 WBC 15.7 H RBC 5.22 H Hgb 13.3 Hct 40.4 MCV 77 L MCH 25.5 MCHC 32.9 RDW Std Deviation 39.7 Plt Count 377 Neut % (Auto) 64 Lymph % (Auto) 29 [place] % (Auto) 6 Eos % (Auto) 0 Baso % (Auto) 0 Neut # (Auto) 10.0 H Lymph # (Auto) 4.6 [place] # (Auto) 1.0 H Eos # (Auto) 0.0 Baso # (Auto) 0.0 Immature Gran # (Auto) 0.05 H Absolute Nucleated RBC 0.00 Immature Gran % 0 Nucleated RBC % 0 Sodium 141 Potassium 3.6 Chloride 105 Carbon Dioxide 26.7 Anion Gap 9 BUN 13 Creatinine 0.8 Estim Creat Clear Calc 136.8 eGFR > 60 BUN/Creatinine Ratio 16 Glucose 92 Calculated Osmolality 281 Calcium 9.3 Corrected Calcium 9.3 Phosphorus 3.9 Magnesium 2.3 Total Bilirubin 0.4 AST 20 ALT 32 Alkaline Phosphatase 89 Total Protein 7.5 Albumin 4.2 Globulin 3.3 Albumin/Globulin Ratio 1.3 Quality Measures Quality Measures none Assessment & Plan Assessment Current Active Medications: Generic Name Dose Route Start Last Admin Trade Name Freq PRN Reason Stop Dose Admin Acetaminophen 650 mg 02/19/25 16:42 Acetaminophen Supp 650 Mg Supp [place] 03/21/25 16:41 Q6H PRN pain and fever Protocol Acetaminophen 650 mg 02/19/25 20:42 02/20/25 13:26 Acetaminophen 325 Mg Tablet PO 03/21/25 20:41 650 mg Q6HR PRN Administration mild pain or fever Protocol Acyclovir 800 mg 02/20/25 15:00 02/23/25 13:16 Acyclovir 800 Mg Tablet PO 02/27/25 14:59 800 mg TID KEYSHA Administration Amlodipine Besylate 10 mg 02/23/25 09:00 02/23/25 08:04 Amlodipine Besylate 5 Mg Tablet PO 03/25/25 08:59 10 mg QDAY KEYSHA Administration Aspirin 81 mg 02/19/25 17:00 02/23/25 08:04 Aspirin Ec 81 Mg Tabec PO 03/21/25 16:59 81 mg DAILY KEYSHA Administration Heparin Sodium (Porcine) 5,000 unit 02/19/25 22:00 02/23/25 13:17 Heparin Sod Inj 5000 Unit/Ml Vial SC 03/05/25 21:59 5,000 unit Q8HR KEYSHA Administration Hydralazine HCl 50 mg 02/22/25 22:00 02/23/25 13:16 Hydralazine Hcl 25 Mg Tablet PO 03/24/25 21:59 50 mg TID KEYSHA Administration Labetalol HCl 5 mg 02/21/25 20:08 02/21/25 20:38 Labetalol Inj 5 Mg/Ml Vial 20 Ml IVP 03/23/25 20:07 5 mg Q4H PRN Administration SBP >180 or DBP >120 and HR >70 Labetalol HCl 100 mg 02/23/25 21:00 Labetalol 100 Mg Tablet PO 03/25/25 20:59 BID KEYSHA Ondansetron HCl 4 mg 02/19/25 16:42 Ondansetron Inj 2 Mg/Ml Inj 2 Ml IV 03/21/25 16:41 Q6H PRN NAUSEA OR VOMITING Protocol Prednisone 60 mg 02/20/25 15:00 02/23/25 08:03 Prednisone 20 Mg Tablet PO 02/25/25 14:59 60 mg QDAY KEYSHA Administration Plan #Kelly's palsy Patient had a viral upper respiratory infection 2 weeks before before presentation CT head was negative for hemorrhage, mass or midline shift Brain MRI was negative for acute stroke Plan: Per neurology standpoint patient can be discharged home ? Continue Aciclovir 800 mg 3 times daily for 10 days total ? Continue prednisone 60 mg daily for 5 days and taper off by 10 mg daily for 5 more days ( total of 10 days) ? Continue facial strengthening exercises with massage and TENS unit ? Patient will benefit of a sleep study as outpatient to rule out MANDEEP or OHS ? Physical therapy outpatient upon discharge #Uncontrolled hypertension #Hypertensive emergency resolved Plan: ? Continue blood pressure control by primary team Patient discussed with my attending Dr Declan Main MD PGY-3 Disclaimer: Despite multiple revisions, due to the dictation software being used, the document bellow may not be free of grammatical errors including phonetic/typographic errors. However, this does not deter from our commitment to providing health care in the patient's best interest in mind. Attending Provider Attestation/Addendum Continue with the facial strengthening exercises, massage periodically to improveHave seen and examined the patient at the bedside and I agree with the resident's findings, assessment and plan of care. Continue with the current management. Along with the B complex vitamin daily. Patient needs to follow aggressive medical management with the diet control and exercise along with multiple antihypertensives. She would need sleep study as an outpatient.
--- NOTE | 2025-02-23 15:57 | PC.SS ---
SS follow up note; SS was contacted my patient's insurance [employer] informing SS that Peer to Peer needs to be established with provider. Phone number . SS attempted to contact peer to peer line. SS contacted Peer to Peer line and they scheduled Peer to peer appointment for February 27 at 12pm. SS updated Team A. SS also updated Ghazal from [facility].
--- NOTE | 2025-02-23 17:29 | ESPR_ITS ---
<Statement entered by Torin Christine MD - 02/24/25 08:16> Senior Resident Attestation: I supervised/discussed management plan with director internal control physician Dr. Chaves, and was involved in the care of this patient. I personally saw and examined the patient and discussed the assessment and plan with the entire medicine team, including my attending. I agree with the assessment and plan as documented. Discharge was held due to significantly elevated blood pressure. Lisinopril was changed to labetalol p.o. Will consider discharge tomorrow if blood pressure is appropriate. Patient's care was discussed with attending physician, Dr. Marr. Torin Christine MD PGY-2. Documentation for date of: 02/23/25 Subjective Subjective Interval history: No acute overnight events reported. Patient seen and examined at bedside this morning. This morning patient's blood pressure is 161/105 after receiving hydralazine however after patient received lisinopril and an hour later patient's blood pressure was 180s systolic and above 110 diastolic. Patient denies any dizziness or shortness of breath. Throughout the day patient continues to have elevated blood pressure despite receiving lisinopril 40 mg, amlodipine 10 mg, and hydralazine 50 mg patient's blood pressure systolic 190s and diastolic above 110 therefore 10 mg of labetalol IV push was given. Patient continues to have elevated blood pressure, will switch antihypertensive meds to labetalol p.o. 100 mg twice daily, hydralazine 50 mg 3 times daily, amlodipine 10 mg p.o. daily and continue to monitor patient's blood pressure 1 more day before discharge as patient is at high risk of stroke with this type of hypertensive emergency. Patient continues to have right-sided facial droop. Exam Vital Signs Temp Pulse Resp BP Pulse Ox O2 Del Method 97.8 F 89 18 146/90 H 100 Room Air 02/23/25 16:00 02/23/25 16:00 02/23/25 16:00 02/23/25 16:02/23/25 16:02/23/25 16:00 Narrative Exam GENERAL: A&Ox3 . Awake, obese young female, does not appear to be in distress NEURO: no focal neurological deficits noted other than right sided facial droop HEENT: Atraumatic, Normocephalic. mucous membranes moist. Eyes open, symmetrical, & clear HEART: Normal Heart Sounds LUNGS: Clear to auscultation with no wheezing or crackles. ABDOMEN: soft, non-distended, non-tender, bowel sounds heard, no guarding or rebound tenderness SKIN: No Rash or ecchymoses EXTREMITIES: No edema, tenderness, able to move all 4 extremities, pedal pulses palpated Objective Labs 02/23/25 04:56 02/23/25 04:56 Labs: Laboratory Results - last 24 hr 02/23/25 04:56 WBC 15.7 H RBC 5.22 H Hgb 13.3 Hct 40.4 MCV 77 L MCH 25.5 MCHC 32.9 RDW Std Deviation 39.7 Plt Count 377 Neut % (Auto) 64 Lymph % (Auto) 29 Bates % (Auto) 6 Eos % (Auto) 0 Baso % (Auto) 0 Neut # (Auto) 10.0 H Lymph # (Auto) 4.6 Bates # (Auto) 1.0 H Eos # (Auto) 0.0 Baso # (Auto) 0.0 Immature Gran # (Auto) 0.05 H Absolute Nucleated RBC 0.00 Immature Gran % 0 Nucleated RBC % 0 Sodium 141 Potassium 3.6 Chloride 105 Carbon Dioxide 26.7 Anion Gap 9 BUN 13 Creatinine 0.8 Estim Creat Clear Calc 136.8 eGFR > 60 BUN/Creatinine Ratio 16 Glucose 92 Calculated Osmolality 281 Calcium 9.3 Corrected Calcium 9.3 Phosphorus 3.9 Magnesium 2.3 Total Bilirubin 0.4 AST 20 ALT 32 Alkaline Phosphatase 89 Total Protein 7.5 Albumin 4.2 Globulin 3.3 Albumin/Globulin Ratio 1.3 Quality Measures Quality Measures none Assessment & Plan Assessment Current Active Medications: Generic Name Dose Route Start Last Admin Trade Name Freq PRN Reason Stop Dose Admin Acetaminophen 650 mg 02/19/25 16:42 Acetaminophen Supp 650 Mg Supp ND 03/21/25 16:41 Q6H PRN pain and fever Protocol Acetaminophen 650 mg 02/19/25 20:42 02/20/25 13:26 Acetaminophen 325 Mg Tablet PO 03/21/25 20:41 650 mg Q6HR PRN Administration mild pain or fever Protocol Acyclovir 800 mg 02/20/25 15:00 02/23/25 13:16 Acyclovir 800 Mg Tablet PO 02/27/25 14:59 800 mg TID KEYSHA Administration Amlodipine Besylate 10 mg 02/23/25 09:00 02/23/25 08:04 Amlodipine Besylate 5 Mg Tablet PO 03/25/25 08:59 10 mg QDAY KEYSHA Administration Aspirin 81 mg 02/19/25 17:00 02/23/25 08:04 Aspirin Ec 81 Mg Tabec PO 03/21/25 16:59 81 mg DAILY KEYSHA Administration Heparin Sodium (Porcine) 5,000 unit 02/19/25 22:00 02/23/25 13:17 Heparin Sod Inj 5000 Unit/Ml Vial SC 03/05/25 21:59 5,000 unit Q8HR KEYSHA Administration Hydralazine HCl 50 mg 02/22/25 22:00 02/23/25 13:16 Hydralazine Hcl 25 Mg Tablet PO 03/24/25 21:59 50 mg TID KEYSHA Administration Labetalol HCl 5 mg 02/21/25 20:08 02/21/25 20:38 Labetalol Inj 5 Mg/Ml Vial 20 Ml IVP 03/23/25 20:07 5 mg Q4H PRN Administration SBP >180 or DBP >120 and HR >70 Labetalol HCl 100 mg 02/23/25 21:00 Labetalol 100 Mg Tablet PO 03/25/25 20:59 BID KEYSHA Ondansetron HCl 4 mg 02/19/25 16:42 Ondansetron Inj 2 Mg/Ml Inj 2 Ml IV 03/21/25 16:41 Q6H PRN NAUSEA OR VOMITING Protocol Prednisone 60 mg 02/20/25 15:00 02/23/25 08:03 Prednisone 20 Mg Tablet PO 02/25/25 14:59 60 mg QDAY KEYSHA Administration Plan Ms. George is a 29-year-old female with no significant past medical history presented to the ED sent from urgent care after she was found to have systolic blood pressure above 200s and right sided facial droop. Pt is admitted for neuro recommendations and management of hypertension. #Hypertensive emergency/urgency #Resistant hypertension #Primary hypertension -differentials for resistant HTN include renal artery stenosis, pheochromocytoma, obesity/MANDEEP, primary aldosteronism - Patient went to urgent care found to have systolic blood pressure above 200 was sent to the ED at [facility]. - In the ED patient had a blood pressure of 210/147 -Patient was given hydralazine x 2, labetalol x 2 in the ED Plan: -Will continue to monitor on telemetry -Switch antihypertensive meds to labetalol p.o. 100 mg twice daily, hydralazine 50 mg 3 times daily, amlodipine 10 mg p.o. daily -Renal ultrasound is within normal limits -Ordered 24-hour urine collection for metanephrines, plasma aldosterone to renin activity ratio, 8 AM cortisol levels -Echo ordered to rule out valvular/cardiac causes of resistant HTN #Kelly's palsy - Patient has a right side facial droop which began on the night of 02/18 without any other deficits, no motor weakness in the extremities or slurred speech - Brain MRI is negative for acute hemorrhage mass effect or midline shift and no acute infarct noted - CT of head is also negative for acute hemorrhage mass effect or midline shift Plan: Neurology is consulted, appreciate recommendations - Per neurology recs aspirin 81 mg is started - Pt is started on acyclovir 800 mg 3 times daily for 10 days, prednisone 60 mg for 5 days and taper for additional 5 days. -As per neuro recommendation pt is encourage to perform facial exercises and use tens unit. And physical therapy outpatient #Asymtomatic bacteriuria -Urinalysis positive for leukocyte esterase, hematuria, bacteriuria and pyuria. -Patient denies any UTI-like symptoms including dysuria or urgency. - Will hold antibiotics since patient is asymptomatic #Morbid Obesity -Pt's BMI is 55.8 -Follow up outpatient for weight-loss options Health Maintenance Disposition: Telemetry for IV labetalol pushes for Hypertensive emergency DVT Prophylaxis: Heparin 5000 units SC Q8 hrs GI Prophylaxis: not indicated Diet: regular diet Lines: Peripheral lines Code status: Full Assessment and plan discussed with my senior resident Dr. Christine & attending physician Dr. Tejinder Chaves (PGY-1)- Internal medicine resident Attending Provider Attestation/Addendum Nubia Martinez, , attest that I was physically present for the allen portions of the service and evaluated the patient with the resident and I reviewed and discussed the case with the resident and agree with the resident's findings and plans of care as documented above Patient seen and evaluated this AM. BP had been improved in the AM with hydralazine 50mg PO TID, amlodipine 10mg PO daily and lisinopril 40mg PO daily. However, patient's systolic BPs went to 248 in the afternoon. Will switch lisinopril to labetalol 100mg PO BID instead of lisinopril as patient is of child-bearing age. Will consider adding spironolactone if BP remains uncontrolled.
[2025-02-23] MEDS: LABETALOL 100 MG TABLET PO (19:46)
[2025-02-24] VITALS (8 sets, daily range): BP systolic 140–177; BP diastolic 91–108; PULSE 62–94; RESP 18–24; TEMP 36.2–36.7; O2SAT 94–97; BMI 52.8
[2025-02-24] MEDS: HEPARIN SOD INJ 5000 UNIT/ML VIAL SC (05:07)
[2025-02-24] MEDS: ACYCLOVIR 800 MG TABLET PO ×2 (05:07→13:39)
[2025-02-24] MEDS: hydrALAZINE HCL 25 MG TABLET 50 MG PO ×2 (05:07→13:38)
[2025-02-24] MEDS: LABETALOL 100 MG TABLET PO (08:26)
[2025-02-24] MEDS: predniSONE 20 MG TABLET 60 MG PO (08:26)
[2025-02-24] MEDS: amLODIPine BESYLATE 5 MG TABLET 10 MG PO (08:26)
[2025-02-24] MEDS: ASPIRIN EC 81 MG TABEC PO (08:27)
--- NOTE | 2025-02-24 13:33 | ESDS_ITS ---
<Statement entered by Nubia Marr DO - 02/25/25 07:48> I, Nubia Marr DO, attest that I was physically present for the allen portions of the service and evaluated the patient with the resident and I reviewed and discussed the case with the resident and agree with the resident's findings and plans of care as documented above Planned Discharge Date 02/24/25 DS: Providers Provider Date of admission: 02/19/25 16:42 Primary care physician: Ji Dash MD Admitting Provider: Sg Campos MD Attending Provider on Admission: Nubia Marr DO Consults: 02/19/25 16:51 Consult to Neurology / Tele-Neurology Stat Comment: Consulting Provider: Benton Manriquez Attending Provider on DC: Santos Chaves MD Discharging Provider: Santos Chaves MD DS: Diagnosis Problem List Completed Was Problem List Reviewed/Reconciled?: Yes Hospital Course Hospital Course Hospital course: Ms. George is a 29-year-old female with no significant past medical history presented to [facility] ED on 02/19/2025 sent from urgent care after she was found to have systolic blood pressure above 200s and right sided facial droop. Patient was worked up for stroke and stroke workup including imagings were negative. Neurologist Dr. Manriquez was consulted and patient was found to have right side Kelly's palsy, per neuro recommendation patient was started on prednisone and acyclovir. However patient's discharge from hospitalization was delayed and further complicated by uncontrolled resistant hypertension. Patient's blood pressure regularly was elevated with systolic blood pressure in the 200s and diastolic blood pressure above 110. Patient was started on multidrug regimen to control blood pressure which was very resistant. Patient's blood pressure today is 155/101, patient is started on 3 antihypertensive medications including amlodipine, hydralazine, labetalol. Patient is ready to discharged home with these medications and recommended to check blood pressure twice daily and keep a log to share with primary care so that adjustments can be made accordingly. An echocardiogram was also ordered and done however patient would need to follow-up outpatient for the results. Patient also was worked up for pheochromocytoma, Gackle's disease, primary aldosteronism all of which patient would need to follow-up outpatient for final results. Patient is hemodynamically stable, blood pressure is under control continues to have right facial droop due to Kelly's palsy and is ready to be discharged home to self-care. As per neurologist recommendations patient is advised to use TENS unit on face to strengthen facial muscles and regularly perform facial exercises. Patient is also recommended to follow-up outpatient with physical therapy referral would be needed by primary care. Patient is advised if her symptoms worsen or return to please promptly return to the ED. Discharge Recommendations -Follow up with PCP with 1 week, make an appointment for March 01 (after taper of prednisone) -You have been prescribed 3 antihypertensive medications. Please check your blood pressure twice daily and bring the log to your PCP -You are prescribed prednisone on a taper. You will take 50mg on 02/25 and decrease by 10mg everyday after that until all the pills are gone. -Take acyclovir until the March 02 -Promptly return to the ED if your symptoms worsen or reocur Hospitalization Diagnosis #Hypertensive emergency/urgency #Primary hypertension #Kelly's palsy #Asymtomatic bacteriuria #Morbid Obesity Assessment and plan discussed with my attending physician Dr. Tejinder Chaves (PGY-1)- Internal medicine resident Time Spent with Patient Time attestation: Total time spent providing and/or coordinating discharge services: Time spent: Greater than 30 minutes Exam Vital Signs Temp Pulse Resp BP Pulse Ox O2 Del Method 97.2 F 86 18 166/97 H 96 Room Air 02/24/25 08:00 02/24/25 10:27 02/24/25 08:00 02/24/25 10:27 02/24/25 08:00 02/24/25 08:00 Narrative Exam GENERAL: A&Ox3 . Awake, obese young female, does not appear to be in distress NEURO: no focal neurological deficits noted other than right sided facial droop HEENT: Atraumatic, Normocephalic. mucous membranes moist. Eyes open, symmetrical, & clear HEART: Normal Heart Sounds LUNGS: Clear to auscultation with no wheezing or crackles. ABDOMEN: soft, non-distended, non-tender, bowel sounds heard, no guarding or rebound tenderness SKIN: No Rash or ecchymoses EXTREMITIES: No edema, tenderness, able to move all 4 extremities, pedal pulses palpated Discharge Plan Plan Patient Disposition: HOME (Self Care) Patient condition on transfer: Stable Care Plan Goals: -Follow up with PCP with 1 week, make an appointment for March 01 (after taper of prednisone) -You have been prescribed 3 antihypertensive medications. Please check your blood pressure twice daily and bring the log to your PCP -You are prescribed prednisone on a taper. You will take 50mg on 02/25 and decrease by 10mg everyday after that until all the pills are gone. -Take acyclovir until the March 02 -Promptly return to the ED if your symptoms worsen or reocur Prescriptions/Referrals Prescriptions/Med Rec: New acyclovir 800 mg Tablet 800 mg PO TID 30 Days Qty: 90 0RF hydralazine 50 mg tablet 50 mg PO TID 30 Days Qty: 90 0RF labetalol 100 mg tablet 100 mg PO BID Qty: 60 0RF prednisone 10 mg tablet 10 mg PO QDAY Qty: 15 0RF Taper: Prednisone Taper 50 mg DAILY for 1 Day and 0 Hour 40 mg DAILY for 1 Day and 0 Hour 30 mg DAILY for 1 Day and 0 Hour 20 mg DAILY for 1 Day and 0 Hour 10 mg DAILY for 1 Day and 0 Hour amlodipine 10 mg tablet 10 mg PO QDAY Qty: 30 0RF Discontinued acetaminophen 650 mg tablet extended release 650 mg PO Q8H PRN (Reason: fever or pain) Qty: 30 0RF Rx Instructions: swallow whole; do not crush, chew, break, dissolve, cut, or open ibuprofen 600 mg tablet 600 mg PO Q8H PRN (Reason: fever or pain) Qty: 30 0RF Rx Instructions: prn pain / fever Referrals: iJ Dash MD [Primary Care Provider] - Patient/Caregiver Discharge Instructions Education Materials: Checking Your Own Blood Pressure, Kelly's Palsy, Blood Pressure Check Steps Print Language: Yemeni Stand Alone Forms: Ro Award Info., Patient Portal Info Letter Discharge Order Discharge Orders: Discharge (Routine); Ordered 02/24/25 Ordered By: Santos Chaves Quality Discharge Quality Measures VTE prophylaxis
[2025-02-26 08:19] LABS: Renin Activity, Plasma* 2.76 ng/mL/h (0.25-5.82)
[2025-02-26 11:29] LABS: Misc Send Out* See Sep Rpt
[2025-02-28 06:26] LABS: Aldosterone* <1 ng/dL
== END 2025-02-24 14:20 | disposition home or self-care (01) | DRG 305 ==
LOC: SERX 15:28 → SERHOLD 17:01 → S2NX 20:00
PROVIDERS: Nurse Practitioner Family; Registered Nurse General Practice; Student in an Organized Health Care Education/Training Program; Admitting Provider Student in an Organized Health Care Education/Training Program; Emergency Provider Emergency Medicine; PCP Family Medicine; Visit Provider Internal Medicine
DX: I16.1 Hypertensive emergency (principal); Z68.43 Body mass index [BMI] 50.0-59.9, adult; G51.0 Bell's palsy; E66.01 Morbid (severe) obesity due to excess calories; I10 Essential (primary) hypertension; I1A.0 Resistant hypertension; Z79.899 Other long term (current) drug therapy
CPT/HCPCS: 36415; 70450; 70553; 80053; 80307; 81001; 81025; 82088; 82384; 82570; 83735; 83880; 84100; 84244; 84484; 85025; 85610; 85730; 93005; 93306; 93975; 96374; 96375; 99285; A9579; J0360; J1643; J2405; J3490; J7512; A9270; J1920